=== PATIENT | male | born 1935 | race Caucasian/White ===

== ENCOUNTER 2017-12-09 09:24 | Inpatient (IN) | payer OTHER, MEDICARE ==
[~2017-12-09] VITALS: Ht 172.7 cm; Wt 87.8 kg
[~2017-12-09 09:24] MED LIST: ASCO500 PO; Aspir 8181 MG PO; CLON1 PO; DOCU100 PO; FERR325 PO; FISH1000 PO; FURO40 PO; Fludrocortison0.1 MG PO; HYDACE10B PO; METO25 PO; MULVITMIND PO; NAPR500 PO; PANT40 PO; POTCHL10ER PO; SENN187 PO; SPIR25 PO
[2017-12-09 09:45] LABS: PCO2 Arterial 83.1 mmHg (35-45); PO2 Arterial 143 mmHg (80-100); pH Blood Arterial 7.25 (7.35-7.45)
[2017-12-09] MEDS ORDERED: CLON1 PO (09:55)
[2017-12-09] MEDS ORDERED: FURO20 PO (09:55)
[2017-12-09] MEDS ORDERED: ALBU2.5V5 (09:55)
[2017-12-09] MEDS ORDERED: ASPI81CH PO (09:55)
[2017-12-09] MEDS ORDERED: DULO30 (09:55)
[2017-12-09] MEDS ORDERED: MELA3 (09:56)
[2017-12-09] MEDS ORDERED: METO25 PO (09:56)
[2017-12-09] MEDS ORDERED: POTCHL10ER PO (09:57)
[2017-12-09] MEDS ORDERED: SPIR25 (09:57)
[2017-12-09 10:00] LABS: Calcium, Ionized (POC) 1.05 mmol/L (1.10-1.46); Chloride (POC) 99 mmol/L (98-108); Creatinine (POC) 1.2 mg/dL (0.8-1.3); Glucose (ISTAT POC) 124 mg/dL (70-99); Hemoglobin (POC) 7.8 g/dL (13.5-17.5); Potassium (POC) 4.7 mmol/L (3.5-5.5); Sodium (POC) 143 mmol/L (135-148); Total CO2 (POC) 35 mmol/L (21-32)
[2017-12-09 10:03] LABS: BASOPHILS ABSOLUTE AUTO 0.06 K/mm3 (0.00-0.23); BASOPHILS PERCENT AUTO 0 % (0-2); EOSINOPHILS ABSOLUTE AUTO 0.09 K/mm3 (0.00-0.68); EOSINOPHILS PERCENT AUTO 1 % (0-6); Hematocrit 23.1 % (37.0-53.0); IMMATURE GRAN ABSOLUTE AUTO 0.26 K/mm3 (0.00-0.10); IMMATURE GRAN PERCENT AUTO 2 % (0-1); LYMPHOCYTES PERCENT AUTO 3 % (21-46); MONOCYTES ABSOLUTE AUTO 0.85 K/mm3 (0.16-1.47); MONOCYTES PERCENT AUTO 5 % (4-13); Mean Corpuscular HGB 18.9 pg (26.0-34.0); Mean Corpuscular HGB Conc 24.7 g/dL (31.5-36.5); Mean Corpuscular Volume 77 fL (80-100); Mean Platelet Volume 9.5 fL (9.1-12.4); NEUTROPHILS ABSOLUTE AUTO 14.34 K/mm3 (1.96-9.15); NEUTROPHILS PERCENT AUTO 89 % (41-73); NRBC ABSOLUTE 0.07 K/mm3 (0.00-0.02); NRBC Auto 0.4 /100 WBC (0.0-0.2); Platelet Count 296 K/mm3 (150-400); RDW Coefficient Variation 18.4 % (11.7-14.2); RDW Standard Deviation 50.6 fL (35.1-46.3); Red Blood Cell Count 3.02 M/mm3 (4.30-5.90)
[2017-12-09 10:05] LABS: Alanine Aminotransfer (ALT/SGP 11 U/L (12-78); Albumin, Blood 2.8 g/dL (3.4-5.0); Albumin/Globulin Ratio 0.6 (0.8-1.8); Alk Phos 132 U/L (50-136); Anion Gap 2 mmol/L (6-16); Aspartate Aminotrans (AST/SGOT 11 U/L (12-37); Bilirubin, Total 0.4 mg/dL (0.1-1.0); Blood Urea Nitrogen 19 mg/dL (8-24); Bun/Creatinine Ratio 15.6 (12.0-20.0); CO2, Blood 37 mmol/L (21-32); Calcium, Blood 7.4 mg/dL (8.5-10.1); Chloride, Blood 104 mmol/L (98-108); Creatinine, Blood 1.22 mg/dL (0.60-1.20); Globulin, Blood 4.6 g/dL (2.2-4.0); Glomerular Filtration Rate >60 (60-); Glucose, Blood 122 mg/dL (70-99); Potassium, Blood 4.9 mmol/L (3.5-5.5); Sodium, Blood 143 mmol/L (136-145); Total Protein, Blood 7.4 g/dL (6.4-8.2); Troponin I <0.015 ng/mL (0.000-0.040)
[2017-12-09 10:56] LABS: Hemoglobin 5.7 g/dL (13.5-17.5)
[2017-12-09 12:13] LABS: Source, Urine Catheter
[2017-12-09 12:17] LABS: Bilirubin, Urine Neg (Neg); Blood, Urine Neg (Neg); Glucose Qualitative, Urine Neg (Neg); Ketones, Urine Neg (Neg); Leukocyte Esterase, Urine Neg (Neg); Nitrite, Urine Neg (Neg); Protein, Urine 1+ (Neg); Urobilinogen, Urine NORM (Normal)
[2017-12-09 12:32] LABS: Appearance, Urine Clear (Clear); Color, Urine Yellow (P-Yellow)
[2017-12-09 14:26] LABS: Hematocrit 23.1 % (37.0-53.0); Hemoglobin 5.7 g/dL (13.5-17.5)
[2017-12-09 16:33] LABS: Hematocrit 26.5 % (37.0-53.0)
[2017-12-09] MEDS ORDERED: NAPR220 PO (17:39)
[2017-12-09] MEDS ORDERED: DOCU100 PO (17:41)
[2017-12-09] MEDS ORDERED: ALBU2.5V5 NEB (17:42)
[2017-12-09] MEDS ORDERED: Multivitamin1 EAC1 PO (17:45)
[2017-12-09] MEDS ORDERED: FISH OIL 1,0001 EAC2 PO (17:46)
[2017-12-09 22:06] LABS: Hematocrit 27.7 % (37.0-53.0); Hemoglobin 7.6 g/dL (13.5-17.5)
[2017-12-10 03:57] LABS: BASOPHILS ABSOLUTE AUTO 0.03 K/mm3 (0.00-0.23); BASOPHILS PERCENT AUTO 0 % (0-2); EOSINOPHILS PERCENT AUTO 1 % (0-6); Hematocrit 28.3 % (37.0-53.0); Hemoglobin 7.6 g/dL (13.5-17.5); IMMATURE GRAN ABSOLUTE AUTO 0.15 K/mm3 (0.00-0.10); IMMATURE GRAN PERCENT AUTO 1 % (0-1); LYMPHOCYTES ABSOLUTE AUTO 0.56 K/mm3 (0.84-5.20); LYMPHOCYTES PERCENT AUTO 5 % (21-46); MONOCYTES PERCENT AUTO 5 % (4-13); Mean Corpuscular HGB 21.2 pg (26.0-34.0); Mean Corpuscular HGB Conc 26.9 g/dL (31.5-36.5); Mean Corpuscular Volume 79 fL (80-100); Mean Platelet Volume 9.5 fL (9.1-12.4); NEUTROPHILS ABSOLUTE AUTO 9.87 K/mm3 (1.96-9.15); NEUTROPHILS PERCENT AUTO 87 % (41-73); NRBC ABSOLUTE 0.04 K/mm3 (0.00-0.02); NRBC Auto 0.4 /100 WBC (0.0-0.2); Platelet Count 203 K/mm3 (150-400); RDW Coefficient Variation 19.2 % (11.7-14.2); RDW Standard Deviation 54.9 fL (35.1-46.3); Red Blood Cell Count 3.58 M/mm3 (4.30-5.90); White Blood Cell Count 11.31 K/mm3 (4.00-11.30)
[2017-12-10 04:17] LABS: Alanine Aminotransfer (ALT/SGP 12 U/L (12-78); Albumin, Blood 2.5 g/dL (3.4-5.0); Albumin/Globulin Ratio 0.6 (0.8-1.8); Alk Phos 113 U/L (50-136); Anion Gap 4 mmol/L (6-16); Aspartate Aminotrans (AST/SGOT 11 U/L (12-37); Blood Urea Nitrogen 17 mg/dL (8-24); Bun/Creatinine Ratio 17.8 (12.0-20.0); CO2, Blood 34 mmol/L (21-32); Calcium, Blood 7.1 mg/dL (8.5-10.1); Chloride, Blood 104 mmol/L (98-108); Creatinine, Blood 0.96 mg/dL (0.60-1.20); Globulin, Blood 4.2 g/dL (2.2-4.0); Glomerular Filtration Rate >60 (60-); Glucose, Blood 99 mg/dL (70-99); Phosphorus, Blood 2.3 mg/dL (2.5-4.9); Potassium, Blood 4.2 mmol/L (3.5-5.5); Sodium, Blood 142 mmol/L (136-145); Total Protein, Blood 6.7 g/dL (6.4-8.2); Vancomycin, Random 9.3 ug/mL
[2017-12-10 17:22] LABS: Hematocrit 25.4 % (37.0-53.0)
[2017-12-10 22:16] LABS: Hematocrit 26.5 % (37.0-53.0); Hemoglobin 7.2 g/dL (13.5-17.5)
[2017-12-10 22:32] LABS: Anion Gap 4 mmol/L (6-16); Blood Urea Nitrogen 15 mg/dL (8-24); Bun/Creatinine Ratio 16.4 (12.0-20.0); CO2, Blood 31 mmol/L (21-32); Calcium, Blood 6.5 mg/dL (8.5-10.1); Chloride, Blood 107 mmol/L (98-108); Creatinine, Blood 0.91 mg/dL (0.60-1.20); Glomerular Filtration Rate >60 (60-); Glucose, Blood 125 mg/dL (70-99); Potassium, Blood 3.9 mmol/L (3.5-5.5); Sodium, Blood 142 mmol/L (136-145)
[2017-12-11 03:46] LABS: Hematocrit 25.8 % (37.0-53.0); Mean Corpuscular HGB Conc 27.1 g/dL (31.5-36.5); Mean Corpuscular Volume 81 fL (80-100); Mean Platelet Volume 8.9 fL (9.1-12.4); NRBC ABSOLUTE 0.03 K/mm3 (0.00-0.02); NRBC Auto 0.3 /100 WBC (0.0-0.2); Platelet Count 143 K/mm3 (150-400); RDW Coefficient Variation 20.1 % (11.7-14.2); Red Blood Cell Count 3.18 M/mm3 (4.30-5.90); White Blood Cell Count 8.59 K/mm3 (4.00-11.30)
[2017-12-11 04:08] LABS: Anion Gap 2 mmol/L (6-16); Blood Urea Nitrogen 13 mg/dL (8-24); Bun/Creatinine Ratio 14.2 (12.0-20.0); CO2, Blood 33 mmol/L (21-32); Calcium, Blood 6.5 mg/dL (8.5-10.1); Chloride, Blood 107 mmol/L (98-108); Creatinine, Blood 0.92 mg/dL (0.60-1.20); Glomerular Filtration Rate >60 (60-); Glucose, Blood 105 mg/dL (70-99); Phosphorus, Blood 1.8 mg/dL (2.5-4.9); Potassium, Blood 3.9 mmol/L (3.5-5.5); Sodium, Blood 142 mmol/L (136-145); Vancomycin, Random 10.3 ug/mL
[2017-12-11 04:37] LABS: BAND PERCENT MAN 3 % (0-8); BASOPHILS PERCENT MAN 0 % (0-2); EOSINOPHILS ABSOLUTE MAN 0.17 K/mm3 (0.00-0.68); EOSINOPHILS PERCENT MAN 2 % (0-6); LYMPHOCYTES ABSOLUTE MAN 0.34 K/mm3 (0.84-5.20); LYMPHOCYTES PERCENT MAN 4 % (21-46); MONOCYTES ABSOLUTE MAN 0.25 K/mm3 (0.16-1.47); MONOCYTES PERCENT MAN 3 % (4-13); MYELOCYTE ABSOLUTE MAN 0.17 K/mm3 (0.00-0.00); MYELOCYTE PERCENT MAN 2 % (0-0); NEUTROPHILS ABSOLUTE MAN 7.64 K/mm3 (1.96-9.15); SEG NEUTROPHILS PERCENT MAN 86 % (41-73); TOTAL CELLS COUNTED 100
[2017-12-11 16:33] LABS: Hematocrit 30.3 % (37.0-53.0); Hemoglobin 8.4 g/dL (13.5-17.5)
[2017-12-12 04:15] LABS: Hematocrit 29.7 % (37.0-53.0); Hemoglobin 8.1 g/dL (13.5-17.5); Mean Corpuscular HGB 22.1 pg (26.0-34.0); Mean Corpuscular HGB Conc 27.3 g/dL (31.5-36.5); Mean Corpuscular Volume 81 fL (80-100); NRBC ABSOLUTE 0.03 K/mm3 (0.00-0.02); NRBC Auto 0.4 /100 WBC (0.0-0.2); Platelet Count 138 K/mm3 (150-400); RDW Coefficient Variation 20.4 % (11.7-14.2); RDW Standard Deviation 59.5 fL (35.1-46.3); Red Blood Cell Count 3.66 M/mm3 (4.30-5.90); White Blood Cell Count 7.91 K/mm3 (4.00-11.30)
[2017-12-12 04:35] LABS: Anion Gap 5 mmol/L (6-16); Blood Urea Nitrogen 8 mg/dL (8-24); Bun/Creatinine Ratio 8.6 (12.0-20.0); CO2, Blood 32 mmol/L (21-32); Calcium, Blood 6.4 mg/dL (8.5-10.1); Chloride, Blood 106 mmol/L (98-108); Creatinine, Blood 0.93 mg/dL (0.60-1.20); Glomerular Filtration Rate >60 (60-); Glucose, Blood 107 mg/dL (70-99); Magnesium, Blood 2.3 mg/dL (1.6-2.4); Potassium, Blood 3.7 mmol/L (3.5-5.5); Sodium, Blood 143 mmol/L (136-145)
[2017-12-12 05:16] LABS: BAND PERCENT MAN 2 % (0-8); BASOPHILS ABSOLUTE MAN 0.07 K/mm3 (0.00-0.23); BASOPHILS PERCENT MAN 1 % (0-2); EOSINOPHILS PERCENT MAN 0 % (0-6); LYMPHOCYTES ABSOLUTE MAN 0.55 K/mm3 (0.84-5.20); LYMPHOCYTES PERCENT MAN 7 % (21-46); MONOCYTES ABSOLUTE MAN 0.31 K/mm3 (0.16-1.47); MONOCYTES PERCENT MAN 4 % (4-13); MYELOCYTE ABSOLUTE MAN 0.23 K/mm3 (0.00-0.00); MYELOCYTE PERCENT MAN 3 % (0-0); NEUTROPHILS ABSOLUTE MAN 6.72 K/mm3 (1.96-9.15); SEG NEUTROPHILS PERCENT MAN 83 % (41-73); TOTAL CELLS COUNTED 100
[2017-12-13 05:28] LABS: Albumin, Blood 2.3 g/dL (3.4-5.0); Anion Gap 5 mmol/L (6-16); Blood Urea Nitrogen 6 mg/dL (8-24); Bun/Creatinine Ratio 7.4 (12.0-20.0); CO2, Blood 30 mmol/L (21-32); Calcium, Blood 6.5 mg/dL (8.5-10.1); Chloride, Blood 108 mmol/L (98-108); Creatinine, Blood 0.81 mg/dL (0.60-1.20); Glomerular Filtration Rate >60 (60-); Glucose, Blood 99 mg/dL (70-99); Phosphorus, Blood 2.2 mg/dL (2.5-4.9); Potassium, Blood 4.4 mmol/L (3.5-5.5); Sodium, Blood 143 mmol/L (136-145)
[2017-12-13 11:07] LABS: BASOPHILS ABSOLUTE AUTO 0.07 K/mm3 (0.00-0.23); BASOPHILS PERCENT AUTO 1 % (0-2); EOSINOPHILS ABSOLUTE AUTO 0.06 K/mm3 (0.00-0.68); EOSINOPHILS PERCENT AUTO 1 % (0-6); Hemoglobin 9.2 g/dL (13.5-17.5); IMMATURE GRAN ABSOLUTE AUTO 0.35 K/mm3 (0.00-0.10); IMMATURE GRAN PERCENT AUTO 4 % (0-1); LYMPHOCYTES ABSOLUTE AUTO 0.41 K/mm3 (0.84-5.20); LYMPHOCYTES PERCENT AUTO 5 % (21-46); MONOCYTES ABSOLUTE AUTO 0.49 K/mm3 (0.16-1.47); MONOCYTES PERCENT AUTO 6 % (4-13); Mean Corpuscular HGB Conc 27.1 g/dL (31.5-36.5); Mean Platelet Volume 10.3 fL (9.1-12.4); NEUTROPHILS ABSOLUTE AUTO 7.19 K/mm3 (1.96-9.15); NEUTROPHILS PERCENT AUTO 84 % (41-73); Platelet Count 110 K/mm3 (150-400); RDW Coefficient Variation 22.1 % (11.7-14.2); White Blood Cell Count 8.57 K/mm3 (4.00-11.30)
[2017-12-13 11:08] LABS: Mean Corpuscular Volume 85 fL (80-100)
[2017-12-14 05:50] LABS: BASOPHILS ABSOLUTE AUTO 0.05 K/mm3 (0.00-0.23); BASOPHILS PERCENT AUTO 1 % (0-2); EOSINOPHILS ABSOLUTE AUTO 0.29 K/mm3 (0.00-0.68); EOSINOPHILS PERCENT AUTO 4 % (0-6); Hematocrit 34.3 % (37.0-53.0); Hemoglobin 9.3 g/dL (13.5-17.5); IMMATURE GRAN ABSOLUTE AUTO 0.21 K/mm3 (0.00-0.10); IMMATURE GRAN PERCENT AUTO 3 % (0-1); LYMPHOCYTES ABSOLUTE AUTO 0.58 K/mm3 (0.84-5.20); LYMPHOCYTES PERCENT AUTO 8 % (21-46); MONOCYTES ABSOLUTE AUTO 0.56 K/mm3 (0.16-1.47); MONOCYTES PERCENT AUTO 8 % (4-13); Mean Corpuscular HGB 22.5 pg (26.0-34.0); Mean Corpuscular HGB Conc 27.1 g/dL (31.5-36.5); Mean Corpuscular Volume 83 fL (80-100); Mean Platelet Volume 9.6 fL (9.1-12.4); NEUTROPHILS ABSOLUTE AUTO 5.57 K/mm3 (1.96-9.15); NEUTROPHILS PERCENT AUTO 77 % (41-73); Platelet Count 115 K/mm3 (150-400); RDW Coefficient Variation 22.2 % (11.7-14.2); Red Blood Cell Count 4.14 M/mm3 (4.30-5.90); White Blood Cell Count 7.26 K/mm3 (4.00-11.30)
[2017-12-14 06:03] LABS: Albumin, Blood 2.3 g/dL (3.4-5.0); Anion Gap 3 mmol/L (6-16); Blood Urea Nitrogen 6 mg/dL (8-24); Bun/Creatinine Ratio 6.1 (12.0-20.0); CO2, Blood 36 mmol/L (21-32); Chloride, Blood 105 mmol/L (98-108); Creatinine, Blood 0.99 mg/dL (0.60-1.20); Glomerular Filtration Rate >60 (60-); Glucose, Blood 107 mg/dL (70-99); Phosphorus, Blood 1.5 mg/dL (2.5-4.9); Potassium, Blood 3.9 mmol/L (3.5-5.5); Sodium, Blood 144 mmol/L (136-145)
[2017-12-15 08:20] LABS: BASOPHILS ABSOLUTE AUTO 0.05 K/mm3 (0.00-0.23); BASOPHILS PERCENT AUTO 1 % (0-2); EOSINOPHILS ABSOLUTE AUTO 0.31 K/mm3 (0.00-0.68); EOSINOPHILS PERCENT AUTO 4 % (0-6); Hematocrit 32.6 % (37.0-53.0); Hemoglobin 8.9 g/dL (13.5-17.5); IMMATURE GRAN PERCENT AUTO 1 % (0-1); LYMPHOCYTES ABSOLUTE AUTO 0.84 K/mm3 (0.84-5.20); LYMPHOCYTES PERCENT AUTO 11 % (21-46); MONOCYTES ABSOLUTE AUTO 0.54 K/mm3 (0.16-1.47); MONOCYTES PERCENT AUTO 7 % (4-13); Mean Corpuscular HGB 22.6 pg (26.0-34.0); Mean Corpuscular HGB Conc 27.3 g/dL (31.5-36.5); Mean Corpuscular Volume 83 fL (80-100); Mean Platelet Volume 9.4 fL (9.1-12.4); NEUTROPHILS ABSOLUTE AUTO 5.67 K/mm3 (1.96-9.15); NEUTROPHILS PERCENT AUTO 76 % (41-73); Platelet Count 109 K/mm3 (150-400); RDW Coefficient Variation 22.5 % (11.7-14.2); RDW Standard Deviation 65.8 fL (35.1-46.3); Red Blood Cell Count 3.94 M/mm3 (4.30-5.90); White Blood Cell Count 7.51 K/mm3 (4.00-11.30)
[2017-12-15 08:39] LABS: Vancomycin, Trough 11.9 ug/mL (5.0-10.0)
[2017-12-15 08:42] LABS: Albumin, Blood 2.2 g/dL (3.4-5.0); Anion Gap 3 mmol/L (6-16); Blood Urea Nitrogen 7 mg/dL (8-24); Bun/Creatinine Ratio 7.3 (12.0-20.0); CO2, Blood 40 mmol/L (21-32); Calcium, Blood 7.2 mg/dL (8.5-10.1); Chloride, Blood 102 mmol/L (98-108); Creatinine, Blood 0.95 mg/dL (0.60-1.20); Glomerular Filtration Rate >60 (60-); Glucose, Blood 94 mg/dL (70-99); Potassium, Blood 3.4 mmol/L (3.5-5.5); Sodium, Blood 145 mmol/L (136-145)
[2017-12-15 13:20] LABS: PCO2 Arterial 63.9 mmHg (35-45); PO2 Arterial 59.3 mmHg (80-100); pH Blood Arterial 7.43 (7.35-7.45)
[2017-12-15 16:00] LABS: Source, Urine Catheter
[2017-12-15 16:29] LABS: Bilirubin, Urine Neg (Neg); Blood, Urine Neg (Neg); Glucose Qualitative, Urine Neg (Neg); Ketones, Urine Neg (Neg); Leukocyte Esterase, Urine 1+ (Neg); Nitrite, Urine Neg (Neg); Protein, Urine Neg (Neg); Urobilinogen, Urine NORM (Normal)
[2017-12-15 16:39] LABS: Appearance, Urine Clear (Clear); Color, Urine Yellow (P-Yellow)
[2017-12-15 16:40] LABS: Bacteria Rare /hpf; Red Blood Cells, Urine Not Seen /hpf (0-2); Squamous Epithelial Cells Rare /hpf (Few); White Blood Cells, Urine 0-2 /hpf (0-5)
[2017-12-16 04:24] LABS: Albumin, Blood 2.3 g/dL (3.4-5.0); Anion Gap 3 mmol/L (6-16); Blood Urea Nitrogen 9 mg/dL (8-24); Bun/Creatinine Ratio 8.4 (12.0-20.0); CO2, Blood 42 mmol/L (21-32); Calcium, Blood 7.5 mg/dL (8.5-10.1); Chloride, Blood 95 mmol/L (98-108); Creatinine, Blood 1.07 mg/dL (0.60-1.20); Glomerular Filtration Rate >60 (60-); Glucose, Blood 91 mg/dL (70-99); Magnesium, Blood 1.7 mg/dL (1.6-2.4); Phosphorus, Blood 1.5 mg/dL (2.5-4.9); Potassium, Blood 3.7 mmol/L (3.5-5.5); Sodium, Blood 140 mmol/L (136-145)
[2017-12-16 05:35] LABS: BASOPHILS ABSOLUTE AUTO 0.05 K/mm3 (0.00-0.23); BASOPHILS PERCENT AUTO 1 % (0-2); EOSINOPHILS ABSOLUTE AUTO 0.38 K/mm3 (0.00-0.68); EOSINOPHILS PERCENT AUTO 5 % (0-6); Hematocrit 30.9 % (37.0-53.0); Hemoglobin 8.6 g/dL (13.5-17.5); IMMATURE GRAN ABSOLUTE AUTO 0.06 K/mm3 (0.00-0.10); IMMATURE GRAN PERCENT AUTO 1 % (0-1); LYMPHOCYTES ABSOLUTE AUTO 0.76 K/mm3 (0.84-5.20); LYMPHOCYTES PERCENT AUTO 10 % (21-46); MONOCYTES ABSOLUTE AUTO 0.59 K/mm3 (0.16-1.47); MONOCYTES PERCENT AUTO 8 % (4-13); Mean Corpuscular HGB 22.3 pg (26.0-34.0); Mean Corpuscular HGB Conc 27.8 g/dL (31.5-36.5); Mean Platelet Volume 9.3 fL (9.1-12.4); NEUTROPHILS ABSOLUTE AUTO 5.68 K/mm3 (1.96-9.15); NEUTROPHILS PERCENT AUTO 76 % (41-73); Platelet Count 111 K/mm3 (150-400); RDW Coefficient Variation 22.7 % (11.7-14.2); RDW Standard Deviation 64.3 fL (35.1-46.3); Red Blood Cell Count 3.85 M/mm3 (4.30-5.90); White Blood Cell Count 7.52 K/mm3 (4.00-11.30)
[2017-12-16 05:41] LABS: Mean Corpuscular Volume 80 fL (80-100)
[2017-12-17 04:46] LABS: BASOPHILS ABSOLUTE AUTO 0.07 K/mm3 (0.00-0.23); BASOPHILS PERCENT AUTO 1 % (0-2); EOSINOPHILS ABSOLUTE AUTO 0.51 K/mm3 (0.00-0.68); EOSINOPHILS PERCENT AUTO 6 % (0-6); Hematocrit 32.1 % (37.0-53.0); IMMATURE GRAN ABSOLUTE AUTO 0.06 K/mm3 (0.00-0.10); IMMATURE GRAN PERCENT AUTO 1 % (0-1); LYMPHOCYTES ABSOLUTE AUTO 0.87 K/mm3 (0.84-5.20); LYMPHOCYTES PERCENT AUTO 11 % (21-46); MONOCYTES ABSOLUTE AUTO 0.52 K/mm3 (0.16-1.47); MONOCYTES PERCENT AUTO 6 % (4-13); Mean Corpuscular HGB 22.5 pg (26.0-34.0); Mean Corpuscular Volume 80 fL (80-100); Mean Platelet Volume 9.7 fL (9.1-12.4); NEUTROPHILS ABSOLUTE AUTO 6.21 K/mm3 (1.96-9.15); NEUTROPHILS PERCENT AUTO 75 % (41-73); Platelet Count 120 K/mm3 (150-400); RDW Coefficient Variation 23.2 % (11.7-14.2); RDW Standard Deviation 66.6 fL (35.1-46.3); White Blood Cell Count 8.24 K/mm3 (4.00-11.30)
[2017-12-17 05:05] LABS: Albumin, Blood 2.3 g/dL (3.4-5.0); Anion Gap 5 mmol/L (6-16); Blood Urea Nitrogen 12 mg/dL (8-24); Bun/Creatinine Ratio 11.9 (12.0-20.0); CO2, Blood 37 mmol/L (21-32); Calcium, Blood 7.8 mg/dL (8.5-10.1); Chloride, Blood 98 mmol/L (98-108); Creatinine, Blood 1.01 mg/dL (0.60-1.20); Glomerular Filtration Rate >60 (60-); Glucose, Blood 98 mg/dL (70-99); Magnesium, Blood 1.8 mg/dL (1.6-2.4); Phosphorus, Blood 2.2 mg/dL (2.5-4.9); Potassium, Blood 4.1 mmol/L (3.5-5.5); Sodium, Blood 140 mmol/L (136-145)
[2017-12-18 05:47] LABS: BASOPHILS ABSOLUTE AUTO 0.04 K/mm3 (0.00-0.23); BASOPHILS PERCENT AUTO 1 % (0-2); EOSINOPHILS PERCENT AUTO 5 % (0-6); Hematocrit 32.4 % (37.0-53.0); Hemoglobin 9.3 g/dL (13.5-17.5); IMMATURE GRAN ABSOLUTE AUTO 0.04 K/mm3 (0.00-0.10); IMMATURE GRAN PERCENT AUTO 1 % (0-1); LYMPHOCYTES ABSOLUTE AUTO 0.91 K/mm3 (0.84-5.20); LYMPHOCYTES PERCENT AUTO 12 % (21-46); MONOCYTES ABSOLUTE AUTO 0.52 K/mm3 (0.16-1.47); MONOCYTES PERCENT AUTO 7 % (4-13); Mean Corpuscular HGB 23.1 pg (26.0-34.0); Mean Corpuscular HGB Conc 28.7 g/dL (31.5-36.5); Mean Corpuscular Volume 80 fL (80-100); Mean Platelet Volume 9.9 fL (9.1-12.4); NEUTROPHILS ABSOLUTE AUTO 5.59 K/mm3 (1.96-9.15); NEUTROPHILS PERCENT AUTO 75 % (41-73); Platelet Count 142 K/mm3 (150-400); RDW Coefficient Variation 23.8 % (11.7-14.2); RDW Standard Deviation 67.6 fL (35.1-46.3); Red Blood Cell Count 4.03 M/mm3 (4.30-5.90)
[2017-12-18 05:54] LABS: Anion Gap 6 mmol/L (6-16); Blood Urea Nitrogen 13 mg/dL (8-24); Bun/Creatinine Ratio 12.4 (12.0-20.0); CO2, Blood 36 mmol/L (21-32); Calcium, Blood 8.5 mg/dL (8.5-10.1); Chloride, Blood 99 mmol/L (98-108); Creatinine, Blood 1.05 mg/dL (0.60-1.20); Glomerular Filtration Rate >60 (60-); Glucose, Blood 98 mg/dL (70-99); Potassium, Blood 4.2 mmol/L (3.5-5.5); Sodium, Blood 141 mmol/L (136-145)
[2017-12-18 08:57] LABS: Vancomycin, Trough 12.2 ug/mL (5.0-10.0)
[2017-12-19 04:59] LABS: BASOPHILS ABSOLUTE AUTO 0.06 K/mm3 (0.00-0.23); BASOPHILS PERCENT AUTO 1 % (0-2); EOSINOPHILS ABSOLUTE AUTO 0.53 K/mm3 (0.00-0.68); EOSINOPHILS PERCENT AUTO 8 % (0-6); Hematocrit 31.9 % (37.0-53.0); Hemoglobin 9.1 g/dL (13.5-17.5); IMMATURE GRAN ABSOLUTE AUTO 0.03 K/mm3 (0.00-0.10); IMMATURE GRAN PERCENT AUTO 0 % (0-1); LYMPHOCYTES ABSOLUTE AUTO 0.82 K/mm3 (0.84-5.20); LYMPHOCYTES PERCENT AUTO 12 % (21-46); MONOCYTES ABSOLUTE AUTO 0.51 K/mm3 (0.16-1.47); MONOCYTES PERCENT AUTO 8 % (4-13); Mean Corpuscular HGB 22.8 pg (26.0-34.0); Mean Corpuscular HGB Conc 28.5 g/dL (31.5-36.5); Mean Corpuscular Volume 80 fL (80-100); Mean Platelet Volume 9.3 fL (9.1-12.4); NEUTROPHILS ABSOLUTE AUTO 4.86 K/mm3 (1.96-9.15); NEUTROPHILS PERCENT AUTO 71 % (41-73); Platelet Count 162 K/mm3 (150-400); RDW Coefficient Variation 23.6 % (11.7-14.2); RDW Standard Deviation 67.7 fL (35.1-46.3); Red Blood Cell Count 3.99 M/mm3 (4.30-5.90); White Blood Cell Count 6.81 K/mm3 (4.00-11.30)
[2017-12-19 05:21] LABS: Anion Gap 6 mmol/L (6-16); Blood Urea Nitrogen 14 mg/dL (8-24); Bun/Creatinine Ratio 13.6 (12.0-20.0); CO2, Blood 34 mmol/L (21-32); Calcium, Blood 8.3 mg/dL (8.5-10.1); Chloride, Blood 101 mmol/L (98-108); Creatinine, Blood 1.03 mg/dL (0.60-1.20); Glomerular Filtration Rate >60 (60-); Glucose, Blood 91 mg/dL (70-99); Potassium, Blood 4.3 mmol/L (3.5-5.5); Sodium, Blood 141 mmol/L (136-145)
[2017-12-19 05:32] LABS: Digoxin (Lanoxin) 1.06 ug/mL (0.80-2.00)
[2017-12-20 12:30] LABS: BASOPHILS ABSOLUTE AUTO 0.09 K/mm3 (0.00-0.23); BASOPHILS PERCENT AUTO 1 % (0-2); EOSINOPHILS ABSOLUTE AUTO 0.56 K/mm3 (0.00-0.68); EOSINOPHILS PERCENT AUTO 7 % (0-6); Hematocrit 33.7 % (37.0-53.0); Hemoglobin 9.5 g/dL (13.5-17.5); IMMATURE GRAN ABSOLUTE AUTO 0.04 K/mm3 (0.00-0.10); IMMATURE GRAN PERCENT AUTO 1 % (0-1); LYMPHOCYTES PERCENT AUTO 9 % (21-46); MONOCYTES ABSOLUTE AUTO 0.64 K/mm3 (0.16-1.47); MONOCYTES PERCENT AUTO 8 % (4-13); Mean Corpuscular HGB 22.7 pg (26.0-34.0); Mean Corpuscular HGB Conc 28.2 g/dL (31.5-36.5); Mean Corpuscular Volume 81 fL (80-100); Mean Platelet Volume 10.1 fL (9.1-12.4); NEUTROPHILS ABSOLUTE AUTO 5.99 K/mm3 (1.96-9.15); NEUTROPHILS PERCENT AUTO 75 % (41-73); Platelet Count 220 K/mm3 (150-400); RDW Coefficient Variation 23.7 % (11.7-14.2); RDW Standard Deviation 68.8 fL (35.1-46.3); Red Blood Cell Count 4.18 M/mm3 (4.30-5.90); White Blood Cell Count 8.02 K/mm3 (4.00-11.30)
[2017-12-20 12:55] LABS: Anion Gap 5 mmol/L (6-16); Blood Urea Nitrogen 15 mg/dL (8-24); Bun/Creatinine Ratio 12.8 (12.0-20.0); CO2, Blood 35 mmol/L (21-32); Calcium, Blood 8.6 mg/dL (8.5-10.1); Chloride, Blood 101 mmol/L (98-108); Creatinine, Blood 1.17 mg/dL (0.60-1.20); Glomerular Filtration Rate >60 (60-); Glucose, Blood 96 mg/dL (70-99); Potassium, Blood 4.4 mmol/L (3.5-5.5); Sodium, Blood 141 mmol/L (136-145)
[2017-12-21 08:24] LABS: BASOPHILS ABSOLUTE AUTO 0.06 K/mm3 (0.00-0.23); BASOPHILS PERCENT AUTO 1 % (0-2); EOSINOPHILS ABSOLUTE AUTO 0.39 K/mm3 (0.00-0.68); EOSINOPHILS PERCENT AUTO 7 % (0-6); Hemoglobin 8.7 g/dL (13.5-17.5); IMMATURE GRAN ABSOLUTE AUTO 0.02 K/mm3 (0.00-0.10); IMMATURE GRAN PERCENT AUTO 0 % (0-1); LYMPHOCYTES ABSOLUTE AUTO 0.75 K/mm3 (0.84-5.20); LYMPHOCYTES PERCENT AUTO 13 % (21-46); MONOCYTES ABSOLUTE AUTO 0.47 K/mm3 (0.16-1.47); MONOCYTES PERCENT AUTO 8 % (4-13); Mean Corpuscular HGB 22.8 pg (26.0-34.0); Mean Corpuscular HGB Conc 28.1 g/dL (31.5-36.5); Mean Corpuscular Volume 81 fL (80-100); Mean Platelet Volume 9.7 fL (9.1-12.4); NEUTROPHILS ABSOLUTE AUTO 4.26 K/mm3 (1.96-9.15); NEUTROPHILS PERCENT AUTO 72 % (41-73); Platelet Count 258 K/mm3 (150-400); RDW Coefficient Variation 23.7 % (11.7-14.2); RDW Standard Deviation 69.2 fL (35.1-46.3); Red Blood Cell Count 3.82 M/mm3 (4.30-5.90); White Blood Cell Count 5.95 K/mm3 (4.00-11.30)
[2017-12-21 08:42] LABS: Anion Gap 4 mmol/L (6-16); Blood Urea Nitrogen 20 mg/dL (8-24); Bun/Creatinine Ratio 16.5 (12.0-20.0); CO2, Blood 34 mmol/L (21-32); Calcium, Blood 8.3 mg/dL (8.5-10.1); Chloride, Blood 105 mmol/L (98-108); Creatinine, Blood 1.21 mg/dL (0.60-1.20); Glomerular Filtration Rate >60 (60-); Glucose, Blood 91 mg/dL (70-99); Magnesium, Blood 2.3 mg/dL (1.6-2.4); Phosphorus, Blood 3.1 mg/dL (2.5-4.9); Potassium, Blood 4.4 mmol/L (3.5-5.5); Sodium, Blood 143 mmol/L (136-145)
[2017-12-21 08:46] LABS: Vancomycin, Trough 14.3 ug/mL (5.0-10.0)
[2017-12-22] MEDS ORDERED: ALBU3IS INH (13:19)
[2017-12-22] MEDS ORDERED: DIGOX250 MCG PO (13:20)
[2017-12-22] MEDS ORDERED: BUDE.25 INH (13:21)
[2017-12-22] MEDS ORDERED: BISA10S PR (13:21)
[2017-12-22] MEDS ORDERED: GAVILAX17 GM PO (13:22)
[2017-12-22] MEDS ORDERED: ACET325 PO (13:22)
[2017-12-22] MEDS ORDERED: Augmentin 875-1 EACH PO (13:23)
[2017-12-22] MEDS ORDERED: Ferrous Sulfat325 M2 PO (13:23)
[2017-12-22] MEDS ORDERED: PANT40 PO (13:24)
== END 2017-12-22 14:26 | DRG 871 ==
LOC: ER 09:24 → MEDS 10:06 → ICUW 10:06 → ICUE 10:06 → ICUW 11:20 → MEDS 12-12 13:45 → PCU 12-15 16:36 → MEDS 12-18 21:13 → ENPENDDIS 12-22 11:30 → MEDS 12-22 14:26
PROVIDERS: Emergency Medicine; Internal Medicine; Internal Medicine Critical Care Medicine; Internal Medicine Gastroenterology; Pharmacist
PROC: 30233N1 Transfusion of Nonautologous Red Blood Cells into Peripheral Vein, Percutaneous Approach (ICD-10-PCS; principal; 2017-12-09)
PROC: 0DD68ZX Extraction of Stomach, Via Natural or Artificial Opening Endoscopic, Diagnostic (ICD-10-PCS; 2017-12-21)
PROC: 0W3P8ZZ Control Bleeding in Gastrointestinal Tract, Via Natural or Artificial Opening Endoscopic (ICD-10-PCS; 2017-12-21 16:00)
DX: A41.9 Sepsis, unspecified organism (principal); J15.5 Pneumonia due to Escherichia coli; J96.21 Acute and chronic respiratory failure with hypoxia; R57.1 Hypovolemic shock; J96.22 Acute and chronic respiratory failure with hypercapnia; I69.354 Hemiplegia and hemiparesis following cerebral infarction affecting left non-dominant side; N17.9 Acute kidney failure, unspecified; J44.1 Chronic obstructive pulmonary disease with (acute) exacerbation; R65.20 Severe sepsis without septic shock; Z87.891 Personal history of nicotine dependence; M19.90 Unspecified osteoarthritis, unspecified site; Z74.01 Bed confinement status; I48.0 Paroxysmal atrial fibrillation; Z79.82 Long term (current) use of aspirin; D50.9 Iron deficiency anemia, unspecified; K21.9 Gastro-esophageal reflux disease without esophagitis; E78.5 Hyperlipidemia, unspecified; F03.90 Unspecified dementia, unspecified severity, without behavioral disturbance, psychotic disturbance, mood disturbance, and anxiety; I95.9 Hypotension, unspecified; R00.0 Tachycardia, unspecified; E83.39 Other disorders of phosphorus metabolism; K27.9 Peptic ulcer, site unspecified, unspecified as acute or chronic, without hemorrhage or perforation; G89.4 Chronic pain syndrome; I69.391 Dysphagia following cerebral infarction; R13.10 Dysphagia, unspecified; Z99.81 Dependence on supplemental oxygen; A49.02 Methicillin resistant Staphylococcus aureus infection, unspecified site; K26.9 Duodenal ulcer, unspecified as acute or chronic, without hemorrhage or perforation; K22.70 Barrett's esophagus without dysplasia; I99.8 Other disorder of circulatory system; I11.0 Hypertensive heart disease with heart failure
CPT/HCPCS: 36415; 36430; 36600; 51702; 51703; 71045; 71046; 80047; 80048; 80053; 80069; 80162; 80202; 81001; 82330; 82803; 83605; 83735; 83880; 84100; 84484; 85007; 85014; 85018; 85025; 85027; 86850; 86900; 86901; 86923; 87040; 87070; 87077; 87086; 87147; 87186; 87205; 88305; 88342; 92610; 93005; 93010; 93306; 94640; 94660; 94667; 94760; 94761; 94762; 96365; 97110; 97116; 97162; 97166; 97530; 97535; 99285-25; C9113; G8978; G8979; G8987; G8988; G8996; G8997; G8998; J1940; J2543; J3370; J7030; J7040; J7050; J7060; J7120; P9016

== ENCOUNTER 2020-12-25 12:44 | Emergency (ER) | payer OTHER ==
[~2020-12-25] VITALS: Ht 172.7 cm; Wt 90.7 kg
[~2020-12-25 12:44] MED LIST changes: +ACET325 PO; +ALBU2.5V5; +ALBU2.5V5 NEB; +ALBU3IS INH; +ASPI81CH PO; +Augmentin 875-1 EACH PO; +BISA10S PR; +BUDE.25 INH; +DIGOX250 MCG PO; +DULO30; +FISH OIL 1,0001 EAC2 PO; +FURO20 PO; +Ferrous Sulfat325 M2 PO; +GAVILAX17 GM PO; +MELA3; +Multivitamin1 EAC1 PO; +NAPR220 PO; +SPIR25
[2020-12-25] MEDS ORDERED: Norco 5-325 Ta1 EACH PO (15:01)
== END 2020-12-25 15:35 | disposition home or self-care (01) ==
LOC: ER 12:44
DX: S82.101A Unspecified fracture of upper end of right tibia, initial encounter for closed fracture (principal); S82.401A Unspecified fracture of shaft of right fibula, initial encounter for closed fracture; K21.9 Gastro-esophageal reflux disease without esophagitis; D64.9 Anemia, unspecified; Z79.899 Other long term (current) drug therapy; Z79.82 Long term (current) use of aspirin; Z87.891 Personal history of nicotine dependence; W18.30XA Fall on same level, unspecified, initial encounter; Y92.000 Kitchen of unspecified non-institutional (private) residence as the place of occurrence of the external cause
CPT/HCPCS: 27752; 73090; 73110; 73560-RT; 73590; 96374-59; 96375-59; 99284-25; J2405; J3010

== ENCOUNTER 2021-01-06 16:00 | Emergency (ER) | payer OTHER ==
[~2021-01-06] VITALS: Ht 172.7 cm; Wt 90.7 kg
[~2021-01-06 16:00] MED LIST changes: +Norco 5-325 Ta1 EACH PO
[2021-01-06] MEDS ORDERED: METO50ER PO ×2 (16:26→16:27)
[2021-01-06] MEDS ORDERED: Ranitidine HCl150 M1 PO (16:27)
[2021-01-06] MEDS ORDERED: SPIR25 PO (16:28)
[2021-01-06] MEDS ORDERED: METSALMENC (16:30)
[2021-01-06] MEDS ORDERED: ASCORBIC ACID500 MG PO (16:37)
== END 2021-01-06 19:05 | disposition home or self-care (01) ==
LOC: ER 16:00
DX: S82.421D Displaced transverse fracture of shaft of right fibula, subsequent encounter for closed fracture with routine healing (principal); S82.101D Unspecified fracture of upper end of right tibia, subsequent encounter for closed fracture with routine healing; D64.9 Anemia, unspecified; K21.9 Gastro-esophageal reflux disease without esophagitis; Z79.899 Other long term (current) drug therapy; Z79.82 Long term (current) use of aspirin; Z86.73 Personal history of transient ischemic attack (TIA), and cerebral infarction without residual deficits; Z87.891 Personal history of nicotine dependence
CPT/HCPCS: 29505; 73562-RT; 99283-25

== ENCOUNTER 2023-07-27 19:09 | Inpatient (IN) | payer OTHER ==
[~2023-07-27] VITALS: Ht 172.7 cm; Wt 109.4 kg
[~2023-07-27 19:09] MED LIST changes: +ASCORBIC ACID500 MG PO; +METO50ER PO; +METSALMENC TOP; +Ranitidine HCl150 M1 PO
[2023-07-27 19:32] LABS: Base Excess Venous 5.5 mmol/L; Bicarbonate Venous 27.8 mmol/L (24.0-30.0); PCO2 Venous 57.8 mmHg (38-42); pH Blood Venous 7.34 (7.34-7.37)
[2023-07-27] MEDS ORDERED: Naloxone HCl 1MG / ML 2ML SYR IV ONE (19:35)
[2023-07-27 19:42] LABS: BASOPHILS ABSOLUTE AUTO 0.03 K/mm3 (0.00-0.23); BASOPHILS PERCENT AUTO 0 % (0-2); EOSINOPHILS ABSOLUTE AUTO 0.01 K/mm3 (0.00-0.68); EOSINOPHILS PERCENT AUTO 0 % (0-6); Hematocrit 40.7 % (37.0-53.0); Hemoglobin 12.3 g/dL (13.5-17.5); IMMATURE GRAN ABSOLUTE AUTO 0.14 K/mm3 (0.00-0.10); IMMATURE GRAN PERCENT AUTO 1 % (0-1); LYMPHOCYTES ABSOLUTE AUTO 0.47 K/mm3 (0.84-5.20); LYMPHOCYTES PERCENT AUTO 4 % (21-46); MONOCYTES ABSOLUTE AUTO 0.18 K/mm3 (0.16-1.47); MONOCYTES PERCENT AUTO 1 % (4-13); Mean Corpuscular HGB 30.8 pg (26.0-34.0); Mean Corpuscular HGB Conc 30.2 g/dL (31.5-36.5); Mean Corpuscular Volume 102 fL (80-100); Mean Platelet Volume 9.4 fL (9.1-12.4); NEUTROPHILS ABSOLUTE AUTO 12.68 K/mm3 (1.96-9.15); NEUTROPHILS PERCENT AUTO 94 % (41-73); Platelet Count 239 K/mm3 (150-400); RDW Coefficient Variation 12.7 % (11.7-14.2); RDW Standard Deviation 48.3 fL (35.1-46.3); White Blood Cell Count 13.51 K/mm3 (4.00-11.30)
[2023-07-27 19:43] LABS: Source, Urine Foley catheter
[2023-07-27] MEDS ORDERED: Ipratropium Bromide INH 0.02% 0.5 mg/2.5ML Vial INH SCH (19:45)
[2023-07-27] MEDS ORDERED: Albuterol 2.5 MG/3 ML VIAL INH SCH (19:45)
[2023-07-27 19:52] LABS: Appearance, Urine Clear (Clear); Bilirubin, Urine Neg (Neg); Blood, Urine 2+ (Neg); Color, Urine Yellow (P-Yellow); Glucose Qualitative, Urine Neg (Neg); Ketones, Urine Neg (Neg); Leukocyte Esterase, Urine Neg (Neg); Nitrite, Urine Neg (Neg); Protein, Urine 2+ (Neg); Urobilinogen, Urine NORM (Normal)
[2023-07-27 20:07] LABS: Albumin, Blood 2.8 g/dL (3.4-5.0); Albumin/Globulin Ratio 0.5 (0.8-1.8); Bilirubin, Total 0.3 mg/dL (0.1-1.0); Bun/Creatinine Ratio 15.8 (12.0-20.0); Calcium, Blood 8.5 mg/dL (8.5-10.1); Creatinine, Blood 1.39 mg/dL (0.60-1.20); Globulin, Blood 5.4 g/dL (2.2-4.0); Potassium, Blood 5.6 mmol/L (3.5-5.5); Total Protein, Blood 8.2 g/dL (6.4-8.2)
[2023-07-27 20:21] LABS: U Amphetamine Screen Not Detected; U Barbituate Screen Not Detected; U Benzodiazapine Screen Not Detected; U Buprenorphine Screen Not Detected; U Cannabinoids Screen Not Detected; U Cocaine Screen Not Detected; U Methadone Screen Not Detected; U Methamphetamine Screen Not Detected; U Opiates Screen Not Detected; U Oxycodone Screen Not Detected; U Phencyclidine Screen Not Detected
[2023-07-27 20:37] LABS: Bacteria Few /hpf; Squamous Epithelial Cells Rare /hpf (Few); White Blood Cells, Urine 0-2 /hpf (0-5)
[2023-07-27] MEDS ORDERED: CefTRIAXone Sodium 1,000 MG in NS 100 ML IV ONE (21:15)
[2023-07-27] MEDS ORDERED: Azithromycin 500 MG in NS 250 ML IV ONE (21:15)
[2023-07-27] MEDS ORDERED: NS 1,000 ML IV SCH (21:15)
[2023-07-27 22:37] LABS: Influenza A, PCR NEGATIVE (NEGATIVE); Influenza B, PCR NEGATIVE (NEGATIVE); Resp Syncytial Virus, PCR NEGATIVE (NEGATIVE); SARS-Cov-2 (COVID-19) PCR, MMC NEGATIVE (NEGATIVE)
[2023-07-28] VITALS (7 sets, daily range): BP systolic 97–128; BP diastolic 52–73
[2023-07-28] MEDS ORDERED: Budesonide 0.5 MG/2 ML RESP INH SCH (02:50)
[2023-07-28] MEDS ORDERED: Albuterol 2.5 MG/3 ML VIAL INH PRN (02:50)
[2023-07-28] MEDS ORDERED: Lactated Ringer's 1,000 ML IV SCH (03:00)
[2023-07-28 03:45] LABS: Base Excess Venous 3.7 mmol/L; Bicarbonate Venous 26.3 mmol/L (24.0-30.0); PCO2 Venous 60.7 mmHg (38-42)
[2023-07-28 04:15] LABS: BASOPHILS ABSOLUTE AUTO 0.03 K/mm3 (0.00-0.23); BASOPHILS PERCENT AUTO 0 % (0-2); EOSINOPHILS PERCENT AUTO 0 % (0-6); Hematocrit 37.9 % (37.0-53.0); Hemoglobin 11.4 g/dL (13.5-17.5); IMMATURE GRAN ABSOLUTE AUTO 0.11 K/mm3 (0.00-0.10); IMMATURE GRAN PERCENT AUTO 1 % (0-1); LYMPHOCYTES ABSOLUTE AUTO 0.43 K/mm3 (0.84-5.20); LYMPHOCYTES PERCENT AUTO 4 % (21-46); MONOCYTES ABSOLUTE AUTO 0.29 K/mm3 (0.16-1.47); MONOCYTES PERCENT AUTO 3 % (4-13); Mean Corpuscular HGB 30.5 pg (26.0-34.0); Mean Corpuscular HGB Conc 30.1 g/dL (31.5-36.5); Mean Corpuscular Volume 101 fL (80-100); Mean Platelet Volume 9.7 fL (9.1-12.4); NEUTROPHILS ABSOLUTE AUTO 9.69 K/mm3 (1.96-9.15); NEUTROPHILS PERCENT AUTO 92 % (41-73); Platelet Count 242 K/mm3 (150-400); RDW Coefficient Variation 12.7 % (11.7-14.2); RDW Standard Deviation 47.5 fL (35.1-46.3); Red Blood Cell Count 3.74 M/mm3 (4.30-5.90); White Blood Cell Count 10.55 K/mm3 (4.00-11.30)
[2023-07-28 04:40] LABS: Albumin, Blood 2.6 g/dL (3.4-5.0); Albumin/Globulin Ratio 0.5 (0.8-1.8); Bilirubin, Total 0.3 mg/dL (0.1-1.0); Bun/Creatinine Ratio 16.8 (12.0-20.0); Calcium, Blood 8.3 mg/dL (8.5-10.1); Creatinine, Blood 1.43 mg/dL (0.60-1.20); Globulin, Blood 5.1 g/dL (2.2-4.0); Potassium, Blood 5.3 mmol/L (3.5-5.5); Total Protein, Blood 7.7 g/dL (6.4-8.2)
[2023-07-28] MEDS ORDERED: NS 1,000 ML IV SCH ×2 (04:55→07:00)
--- NOTE | 2023-07-28 06:42 | NUR ---
SHIFT SUMMARY PATIENT ARRIVED TO PCU 05 VIA STRETCHER, SLIDE TRANSFER COMPLETED. PATIENT WAS AWAKE AND ALERT AND ORIENTED X4. WAS ONLY ABLE TO SPEAK A FEW WORDS AT A TIME DUE TO WORK OF BREATHING. PATIENT ON 2 LITERS O2 VIA NASAL CANULA, PATIENT REPORTS FEELING SHORT OF BREATH, AUDIBLE WHEEZE WHEN STANDING NEXT TO HIM. PATIENT DENIES HAVING ANY CHEST PAIN OR PRESSURE, BLOOD PRESSURE STABLE, SINUS RHYTHM ON TELE. PATIENT HAS A HISTORY OF STROKE, RIGHT SIDE OF MOUTH TURNED DOWN, DIFFERENT PUPIL SIZES NOTED, PATIENT REPORTS DOUBLE VISION, ALL SINCE THE STROKE. PATIENT ABLE TO PARTICIPATE IN CARE. WILL CONTINUE TO MONITOR. CALL LIGHT WITHIN REACH.
[2023-07-28] MEDS ORDERED: Enoxaparin 40 MG/0.4 ML SYR SC SCH (09:00)
[2023-07-28] MEDS ORDERED: Lactobacil 2-S.Thermo-Bifido 1 1 Cap PO SCH (09:00)
[2023-07-28] MEDS ORDERED: MethylPREDNISolone Sod Succ 40 MG VIAL IV SCH (12:00)
[2023-07-28 16:14] LABS: Acinetobacter baumannii DNA Not Detected copy/mL (NOT DETECT); Enterobacter cloacae DNA Not Detected copy/mL (NOT DETECT)
[2023-07-28 16:15] LABS: Escherichia coli DNA Detected Bin 10^5 copy/mL (NOT DETECT); Haemophilus influenzae DNA Detected Bin 10^5 copy/mL (NOT DETECT); Klebsiella aerogenes DNA Not Detected copy/mL (NOT DETECT); Klebsiella oxytoca DNA Not Detected copy/mL (NOT DETECT); Klebsiella pneumoniae DNA Not Detected copy/mL (NOT DETECT); Moraxella catarrhalis DNA Detected Bin 10^6 copy/mL (NOT DETECT); Proteus sp DNA Not Detected copy/mL (NOT DETECT); Pseudomonas aeruginosa DNA Not Detected copy/mL (NOT DETECT); Serratia marcescens DNA Not Detected copy/mL (NOT DETECT); Staphylococcus aureus DNA Not Detected copy/mL (NOT DETECT)
[2023-07-28 16:16] LABS: Adenovirus DNA Not Detected (NOT DETECT); CTX-M Resistance Gene Not Detected; Chlamydia pneumonia Not Detected (NOT DETECT); Human Coronavirus RNA Not Detected (NOT DETECT); Human Metapneumovirus RNA Not Detected (NOT DETECT); IMP Resistance Gene Not Detected; Influenza virus A RNA Not Detected (NOT DETECT); Influenza virus B RNA Not Detected (NOT DETECT); KPC Resistance Gene Not Detected; Legionella pneumophila Not Detected (NOT DETECT); Mycoplasma pneumoniae Not Detected (NOT DETECT); NDM Resistance Gene Not Detected; OXA-48-like Resistance Gene Not Detected; Parainfluenza virus RNA Not Detected (NOT DETECT); Respiratory syncytial Vir RNA Not Detected (NOT DETECT); Rhinovirus+Enterovirus RNA Not Detected (NOT DETECT); Streptococcus agalactiae DNA Detected Bin 10^5 copy/mL (NOT DETECT); Streptococcus pneumoniae DNA Not Detected copy/mL (NOT DETECT); Streptococcus pyogenes DNA Not Detected copy/mL (NOT DETECT); VIM Resistance Gene Not Detected; mecA/C and MREJ Resist Gene Not Detected
--- NOTE | 2023-07-28 16:41 | NUR ---
SHIFT SUMMARY PT A/O X4 ALL SHIFT. NO CURRENT CHANGE OF MENTAL STATUS. PT ABLE TO USE CALL LIGHT APPROPRIATLEY AND EXPRESS HIS NEEDS. WHEN AWAKE PT IS ON 2L O2 VIA NC, WHEN ALSEEP SATS DROP TO MID 80'S. BIPAP PLACED WHEN ASLEEP SETTINGS AT 16/8 AT 30%. PT APPEARS SOB WHEN HAVING CONVERSATION AND EATING, STATES "BREATHING IS FINE." BP HAVE REMAINED STABLE. ON TELE, HR IN SR IN LOW 70'S. AT BEGINNING OF SHIFT PT HAD CONDOM CATH PLACED, DURING SHIFT CTAH WAS LEAKING, REPLACED WITH ANOTHER ONE AND WAS STILL LEAKING, REMOVED CONDOM CATH AND PLACED URINAL NEXT TO PT PER HIS REQUEST, EVEN THOUGH HE STATED EARLIER IN THE SHIFT INCONTINENT. PT HAD SPEECH EVALUATION COMPLETED AND WAS PUT ON MINCED AND MOIST, AND CAN TAKE PILLS WHOLE, TOLERATES WELL. HEAD CT AND ECHO WERE ALSO COMPLETED TODAY. HOSPITAL SCIENTIST SAW PT, PT UPATED ABOUT TX PLAN.
[2023-07-28] MEDS ORDERED: Sodium Bicarb 8.4% Inj 50 MEQ in Sodium Chloride 0.45% 1,000 ML IV SCH (17:00)
--- NOTE | 2023-07-28 17:07 | NUR ---
THIS RN OVERSAW AND REVIEWED STUDENT RN'S CHARTING AND ASSESSMENTS.
--- NOTE | 2023-07-28 17:09 | NUR ---
THIS RN CONTACTED MD ABOUT 1/2 NS WITH BICARB NEW ORDER PLACED WITH A CURRENT ORDER OF NS AT 125MLS/HR. MD INSTRUCTED THIS RN TO FINISH NS 125 BAG AND DC IT AFTER BAG IS FINISHED.
--- NOTE | 2023-07-28 17:32 | NUR ---
UPDATE WHEN DINNER TRAYS CAME PT TOOK OFF BIPAP MACHINE AND SATS QUICKLY DECLINED TO MID 80'S. 2L NC WAS APPLIED BY MACHINE II COREMAKER. TITRATED TO 3 LITERS AND SATS SLOWLY CAME UP TO LOW 90'S. LOWERED BACK DOWN TO 2L AND IS NOW EATING.
[2023-07-28] MEDS ORDERED: CefTRIAXone Sodium 1,000 MG in NS 100 ML IV SCH (18:00)
[2023-07-28] MEDS ORDERED: Guaifenesin/Dextromethorphan Syrup 5 ML UDC PO SCH (21:00)
[2023-07-28] MEDS ORDERED: ClonazePAM 0.5 MG Tab PO SCH (21:00)
[2023-07-28 21:31] LABS: PCO2 Venous 56.7 mmHg (38-42); pH Blood Venous 7.35 (7.34-7.37)
[2023-07-28 21:32] LABS: Base Excess Venous 5.7 mmol/L; Bicarbonate Venous 28.6 mmol/L (24.0-30.0)
[2023-07-28] MEDS ORDERED: Albuterol 2.5 MG/3 ML VIAL INH STA (21:42)
[2023-07-28] MEDS ORDERED: Ipratropium/Albuterol SulF 2.5-0.5MG/3 ML Amp INH SCH (22:00)
[2023-07-28] MEDS ORDERED: CefTRIAXone Sodium 2,000 MG in NS 100 ML IV SCH (22:00)
[2023-07-28] MEDS ORDERED: Azithromycin 500 MG in NS 250 ML IV SCH (23:00)
[2023-07-28] MEDS ORDERED: NS 250 ML IV PRN (23:05)
[2023-07-29] MEDS ORDERED: MethylPREDNISolone Sod Succ 125 MG Vial IV SCH
--- NOTE | 2023-07-29 00:16 | NUR ---
UPDATE PT REFUSING BIPAP, DESPITE THIS RN PROVIDED EDUCATION ABOUT PURPOSE AND IMPORTANCE OF BIPAP.
[2023-07-29 03:25] VITALS: BP 115/55
[2023-07-29 05:39] LABS: BASOPHILS ABSOLUTE AUTO 0.01 K/mm3 (0.00-0.23); BASOPHILS PERCENT AUTO 0 % (0-2); EOSINOPHILS PERCENT AUTO 0 % (0-6); Hematocrit 32.9 % (37.0-53.0); Hemoglobin 10.1 g/dL (13.5-17.5); IMMATURE GRAN ABSOLUTE AUTO 0.07 K/mm3 (0.00-0.10); IMMATURE GRAN PERCENT AUTO 1 % (0-1); LYMPHOCYTES ABSOLUTE AUTO 0.24 K/mm3 (0.84-5.20); LYMPHOCYTES PERCENT AUTO 3 % (21-46); MONOCYTES PERCENT AUTO 1 % (4-13); Mean Corpuscular HGB 30.3 pg (26.0-34.0); Mean Corpuscular HGB Conc 30.7 g/dL (31.5-36.5); Mean Corpuscular Volume 99 fL (80-100); Mean Platelet Volume 9.5 fL (9.1-12.4); NEUTROPHILS ABSOLUTE AUTO 7.86 K/mm3 (1.96-9.15); NEUTROPHILS PERCENT AUTO 95 % (41-73); Platelet Count 227 K/mm3 (150-400); RDW Coefficient Variation 12.8 % (11.7-14.2); RDW Standard Deviation 46.3 fL (35.1-46.3); Red Blood Cell Count 3.33 M/mm3 (4.30-5.90); White Blood Cell Count 8.28 K/mm3 (4.00-11.30)
--- NOTE | 2023-07-29 05:48 | NUR ---
SHIFT SUMMARY SEE PREVIOUS NOTE. PT A&Ox4, CALLS AND COMMUNICATES NEEDS APPROPRIATELY. PT AGREED TO DO BREATHING TREATMENTS BUT CONTINUED TO REFUSE BIPAP THROUGHOUT NIGHT. SpO2> 92% 2-3 L VIA NC, DENIES SOB. PT USED SUCTION IND TO MANAGED SECRETIONS. BP STABLE, SR-ST 90-110's, DENIES CP/PRESSURE. Q2 TURNS PROVIDED. PT ABLE TO USE URINAL IND IN BED. NO C/O OF PAIN THROUGHOUT SHIFT. NO OTHER EVENTS, WILL REPORT TO ONCOMING RN.
[2023-07-29 06:01] LABS: Albumin, Blood 2.4 g/dL (3.4-5.0); Albumin/Globulin Ratio 0.5 (0.8-1.8); Bilirubin, Total 0.2 mg/dL (0.1-1.0); Bun/Creatinine Ratio 20.1 (12.0-20.0); Creatinine, Blood 1.39 mg/dL (0.60-1.20); Globulin, Blood 4.7 g/dL (2.2-4.0); Potassium, Blood 4.8 mmol/L (3.5-5.5); Total Protein, Blood 7.1 g/dL (6.4-8.2)
[2023-07-29 06:04] LABS: BASOPHILS PERCENT MAN 0 % (0-2); EOSINOPHILS PERCENT MAN 0 % (0-6); MONOCYTES PERCENT MAN 0 % (4-13); NEUTROPHILS ABSOLUTE MAN 8.28 K/mm3 (1.96-9.15); SEG NEUTROPHILS PERCENT MAN 100 % (41-73); TOTAL CELLS COUNTED 100
[2023-07-29 07:27] VITALS: BP 135/66
[2023-07-29 11:59] VITALS: BP 130/64
--- NOTE | 2023-07-29 13:44 | NUR ---
Spiritual Care Attempt. Though Pts. chart identifies as a Judaism. Pt. and family graciously decline spiritual care. Family verbalized gratitude for the attempt.
[2023-07-29] MEDS ORDERED: Polyethylene Glycol 3350 17 gm PO PRN (15:00)
[2023-07-29] MEDS ORDERED: Acetaminophen 325 MG TABLET PO PRN (15:00)
[2023-07-29] MEDS ORDERED: Bisacodyl 10 MG Supp PR PRN (15:05)
--- NOTE | 2023-07-29 15:09 | NUR ---
PT'S AND DAUGHTER ARRIVED FOR VISITATION AT ROUGHLY 1300. PT'S ASKED FOR PALLIATIVE NURSE FOR POLST DISCUSSION. PALLIATIVE RN TO PT'S ROOM. PT'S POLST FILLED OUT WITH PALLIATIVE RN AND PT, PT'S , AND DAUGHTER. MD NOTIFIED OF POLST BEING FILLED OUT AND NEEDING MD SIGNITURE.
--- NOTE | 2023-07-29 16:04 | NUR ---
Palliative care meeting with pt and his re: Code Status. The patient is alert, oriented, able to make his own decisions. He was clear he did not wish to be resucitated if his heart were to stop. He would, however be okay with being intubated in the case of respiratory distress or failure. New POLST filled out, pt now LIMITED CODE. POLST signed by patient's per his request and physician. Copy sent to medical records and POLST registry.
[2023-07-29 16:40] VITALS: BP 111/72
[2023-07-29] MEDS ORDERED: Ferrous Sulfate 325 MG Tab PO SCH (17:00)
--- NOTE | 2023-07-29 18:02 | NUR ---
SHIFT SUMMARY PT IS A/O X4. NO ACUTE MENTAL CHANGES DURING SHIFT. PT REFUSED BIPAP DURING SHIFT. PT IS CURRENTLY ON 2L NC AND IS SATING LOW 90'S. RESPIRATORY CAME AND PLACED SHAKER VEST ON PT. PT GETS SOB UPON AMBULATION FROM BED TO CHAIR. STANDBY WALKER AND GAITBELT USED DURING AMBULATION WITH 2 STANDBY ASSIST. HR SINUS TACH IN THE 110'S. BP AND OTHER VITAL SIGNS STABLE. NO COMPLAINT OF N/V/D AND IS ABLE TO TOLERATE DIET. PITTING EDEMA STILL PRESENT IN BILATERAL LEGS AND FEET. PALLIATIVE CARE CAME AND DISCUSSED POLST WITH PT, POLST HAS BEEN UPDATED AND SIGNED BY DOCTOR AND IS IN PT'S CHART. SPEECH EVAL CAME TO SEE PT AND HE TOLERATED WELL. PT'S FAMILY CAME TO SEE HIM AND UPDATED ON CARE.
--- NOTE | 2023-07-29 18:37 | NUR ---
HTIS RN REVIEWED AND AGREES WITH STUDENT RN'S NOTES AND ASSESSMENTS.
[2023-07-29 20:42] VITALS: BP 132/65
[2023-07-29] MEDS ORDERED: Metoprolol Tartrate 25 MG Tab PO SCH (21:00)
[2023-07-29] MEDS ORDERED: Metoprolol Succinate 50 MG TABCR PO SCH (21:00)
[2023-07-29] MEDS ORDERED: Docusate Sodium 100 MG Cap PO SCH (21:00)
[2023-07-29 23:02] VITALS: BP 131/93
[2023-07-30 03:28] VITALS: BP 137/76
[2023-07-30 03:46] LABS: BASOPHILS ABSOLUTE AUTO 0.01 K/mm3 (0.00-0.23); BASOPHILS PERCENT AUTO 0 % (0-2); EOSINOPHILS PERCENT AUTO 0 % (0-6); Hematocrit 34.3 % (37.0-53.0); Hemoglobin 10.5 g/dL (13.5-17.5); IMMATURE GRAN ABSOLUTE AUTO 0.11 K/mm3 (0.00-0.10); IMMATURE GRAN PERCENT AUTO 1 % (0-1); LYMPHOCYTES ABSOLUTE AUTO 0.31 K/mm3 (0.84-5.20); LYMPHOCYTES PERCENT AUTO 4 % (21-46); MONOCYTES ABSOLUTE AUTO 0.17 K/mm3 (0.16-1.47); MONOCYTES PERCENT AUTO 2 % (4-13); Mean Corpuscular HGB 30.3 pg (26.0-34.0); Mean Corpuscular HGB Conc 30.6 g/dL (31.5-36.5); Mean Corpuscular Volume 99 fL (80-100); Mean Platelet Volume 9.7 fL (9.1-12.4); NEUTROPHILS ABSOLUTE AUTO 7.64 K/mm3 (1.96-9.15); NEUTROPHILS PERCENT AUTO 93 % (41-73); Platelet Count 239 K/mm3 (150-400); RDW Coefficient Variation 13.1 % (11.7-14.2); RDW Standard Deviation 47.1 fL (35.1-46.3); Red Blood Cell Count 3.46 M/mm3 (4.30-5.90); White Blood Cell Count 8.24 K/mm3 (4.00-11.30)
[2023-07-30 04:05] LABS: Bun/Creatinine Ratio 18.2 (12.0-20.0); Calcium, Blood 8.1 mg/dL (8.5-10.1); Creatinine, Blood 1.32 mg/dL (0.60-1.20); Potassium, Blood 4.9 mmol/L (3.5-5.5)
--- NOTE | 2023-07-30 06:08 | NUR ---
SHIFT SUMMARY PT A&Ox4, CALLS AND COMMUNICATES NEEDS APPROPRIATELY. SpO2> 92% 1.5-2 L VIA NC, DENIES SOB. PT USED SUCTION IND TO MANAGED SECRETIONS. BP STABLE, SR-ST 90-110's, DENIES CP/PRESSURE. Q2 TURNS PROVIDED. PT ABLE TO USE URINAL IND IN BED. NO C/O OF PAIN THROUGHOUT SHIFT. NO OTHER EVENTS, WILL REPORT TO ONCOMING RN.
[2023-07-30 08:04] VITALS: BP 141/76
[2023-07-30] MEDS ORDERED: Multivitamins 1 Tab PO SCH (09:00)
[2023-07-30] MEDS ORDERED: Spironolactone 25 MG Tab PO SCH (09:00)
[2023-07-30] MEDS ORDERED: Ascorbic Acid 500 MG Tab PO SCH (09:00)
[2023-07-30] MEDS ORDERED: Omega-3 Acid Ethyl Esters 1,000 MG CAP PO SCH (09:00)
--- NOTE | 2023-07-30 10:11 | NUR ---
AM NOTE this rn assumed care at 0700. vital signs stable. tele sinustach 100s-120s patient is alert and oriented x4. perrla. patient reports no chest pain/pressure. patient reports shortness of breath with exertion. pateint had audible wheezes. spo2 >90% on 1.5l nc. baseline 2l nc. denies pain. 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 patient uses wheelchair at baseline, and walker occasionally at home. md nash and stephanie in to see patient this am. discussed plan of care. plan to continue current treatment of steriods and breathing treatments.
[2023-07-30 12:03] VITALS: BP 127/69
[2023-07-30] MEDS ORDERED: Acetylcysteine 200 MG/ML 4ML Vial INH SCH ×3 (12:30→19:00)
[2023-07-30 15:56] VITALS: BP 130/86
--- NOTE | 2023-07-30 17:57 | NUR ---
shift summary patient neuro remains unchaged. vital signs stable. patient denies chest pain/pressure or pain. becomes short of breath with exertion. no acute changes. see previous notes
[2023-07-30 19:39] VITALS: BP 131/84
[2023-07-30 23:37] VITALS: BP 132/92
[2023-07-31 04:29] LABS: BASOPHILS ABSOLUTE AUTO 0.02 K/mm3 (0.00-0.23); BASOPHILS PERCENT AUTO 0 % (0-2); EOSINOPHILS PERCENT AUTO 0 % (0-6); Hematocrit 37.3 % (37.0-53.0); Hemoglobin 11.5 g/dL (13.5-17.5); IMMATURE GRAN ABSOLUTE AUTO 0.11 K/mm3 (0.00-0.10); IMMATURE GRAN PERCENT AUTO 2 % (0-1); LYMPHOCYTES ABSOLUTE AUTO 0.29 K/mm3 (0.84-5.20); LYMPHOCYTES PERCENT AUTO 4 % (21-46); MONOCYTES ABSOLUTE AUTO 0.19 K/mm3 (0.16-1.47); MONOCYTES PERCENT AUTO 3 % (4-13); Mean Corpuscular HGB 30.4 pg (26.0-34.0); Mean Corpuscular HGB Conc 30.8 g/dL (31.5-36.5); Mean Corpuscular Volume 99 fL (80-100); Mean Platelet Volume 9.4 fL (9.1-12.4); NEUTROPHILS ABSOLUTE AUTO 6.15 K/mm3 (1.96-9.15); NEUTROPHILS PERCENT AUTO 91 % (41-73); Platelet Count 265 K/mm3 (150-400); RDW Standard Deviation 46.4 fL (35.1-46.3); Red Blood Cell Count 3.78 M/mm3 (4.30-5.90); White Blood Cell Count 6.76 K/mm3 (4.00-11.30)
[2023-07-31 04:53] LABS: Albumin, Blood 2.7 g/dL (3.4-5.0); Albumin/Globulin Ratio 0.6 (0.8-1.8); Bilirubin, Total 0.3 mg/dL (0.1-1.0); Bun/Creatinine Ratio 18.9 (12.0-20.0); Calcium, Blood 8.3 mg/dL (8.5-10.1); Creatinine, Blood 1.32 mg/dL (0.60-1.20); Globulin, Blood 4.7 g/dL (2.2-4.0); Potassium, Blood 5.1 mmol/L (3.5-5.5); Total Protein, Blood 7.4 g/dL (6.4-8.2)
[2023-07-31 05:27] VITALS: BP 120/75
--- NOTE | 2023-07-31 05:49 | NUR ---
SHIFT SUMMARY PATIENT ALERT AND ORIENTED x4. [place]. ABLE TO MAKE NEEDS KNOWN TO STAFF. BP STABLE. TELE READING SR-ST DURING THE NIGHT. PATIENT ON BASELINE 2-3L NC WITH SPO2 LOW 90s. USING SUCITON AT BEDSIDE FOR EXCESS SECRETIONS. USING URINAL INDEPENDENTLY, ADEQUATE OUTPUT. NO OTHER CHANGES DURING THE NIGHT. WILL REPORT TO DAY SHIFT RN.
[2023-07-31 08:01] VITALS: BP 124/74
[2023-07-31] MEDS ORDERED: Ipratropium/Albuterol SulF 2.5-0.5MG/3 ML Amp INH SCH (08:10)
--- NOTE | 2023-07-31 12:13 | NUR ---
CARE NOTE THIS RN ENCOURAGED PT TO GET UP INTO CHAIR FOR LUNCH AND HE DECLINED TO DO SO. THIS RN EDUCATED PT ON IMPORTANCE OF ACTIVITY AND WILL CONTINUE TO ENCOURAGE MOBILITY/ACTIVITY. CALL LIGHT IS W/IN REACH.
--- NOTE | 2023-07-31 13:17 | NUR ---
CARE NOTE THIS RN SPOKE W/ PT'S CAREGIVER MILTON AND PROVIDED UPDATE W/ PT'S APPROVAL AT APPROX. 1315.
[2023-07-31] MEDS ORDERED: Furosemide 10 MG / ML 2ML Vial IV SCH (14:00)
[2023-07-31 15:09] VITALS: BP 119/78
--- NOTE | 2023-07-31 17:08 | NUR ---
Received pt from PCU 5 at 1500 awake and alert x4. Denies pain. VSS. Resp even nonlabored on 2L NC baseline. Oriented to room and call light. Urinal at bedside. Dinner tray provided. Pain and safety maintained. Will continue to monitor.
--- NOTE | 2023-07-31 17:08 | NUR ---
SHIFT SUMMARY/TRANSFER NOTE PT WAS ALERT AND ORIENTED X 4, HE WAS ABLE TO MAKE HIS NEEDS KNOWN AND CALLED APPROPRIATELY. HE DECLINED GETTING UP TO CHAIR T/O SHIFT DESPITE MUCH ENCOURAGEMENT. BP AND HR STABLE. SPO2 WAS MAINTAINED >95% VIA 2L NC, HE DESATURATED W/ MINIMAL EXERTION BUT RECOVERED QUICKLY. HE DENIED FEELINGS OF CHEST PAIN/PRESSURE, LIGHTHEADEDNESS/DIZZINESS. HE REPORTED RESPIRATORY STATUS WAS BACK TO BASELINE. HE USED BEDSIDE URINAL TO VOID T/O SHIFT. HE DENIED FEELINGS OF NAUSEA/VOMITTING. REPORT GIVEN BY THIS RN TO JEM SCHOFIELD ON MEDICAL FLOOR, PT TRANSFERRED TO MED FLOOR AT APPROX. 1700 AND WAS SENT W/ ALL OF PERSONAL BELONGINGS.
[2023-07-31 19:27] VITALS: BP 134/85
[2023-08-01 03:55] VITALS: BP 111/61
[2023-08-01 05:04] LABS: BASOPHILS ABSOLUTE AUTO 0.01 K/mm3 (0.00-0.23); BASOPHILS PERCENT AUTO 0 % (0-2); EOSINOPHILS PERCENT AUTO 0 % (0-6); Hematocrit 36.2 % (37.0-53.0); Hemoglobin 11.3 g/dL (13.5-17.5); IMMATURE GRAN ABSOLUTE AUTO 0.18 K/mm3 (0.00-0.10); IMMATURE GRAN PERCENT AUTO 3 % (0-1); LYMPHOCYTES ABSOLUTE AUTO 0.31 K/mm3 (0.84-5.20); LYMPHOCYTES PERCENT AUTO 4 % (21-46); MONOCYTES ABSOLUTE AUTO 0.18 K/mm3 (0.16-1.47); MONOCYTES PERCENT AUTO 3 % (4-13); Mean Corpuscular HGB 30.3 pg (26.0-34.0); Mean Corpuscular HGB Conc 31.2 g/dL (31.5-36.5); Mean Corpuscular Volume 97 fL (80-100); Mean Platelet Volume 9.4 fL (9.1-12.4); NEUTROPHILS ABSOLUTE AUTO 6.54 K/mm3 (1.96-9.15); NEUTROPHILS PERCENT AUTO 91 % (41-73); Platelet Count 234 K/mm3 (150-400); RDW Coefficient Variation 12.9 % (11.7-14.2); Red Blood Cell Count 3.73 M/mm3 (4.30-5.90); White Blood Cell Count 7.22 K/mm3 (4.00-11.30)
[2023-08-01 05:46] LABS: Bun/Creatinine Ratio 24.1 (12.0-20.0); Calcium, Blood 8.1 mg/dL (8.5-10.1); Creatinine, Blood 1.37 mg/dL (0.60-1.20); Potassium, Blood 5.1 mmol/L (3.5-5.5)
[2023-08-01 07:28] VITALS: BP 169/105
[2023-08-01] MEDS ORDERED: ACETADOTE200 MG/1 M INH (12:27)
[2023-08-01] MEDS ORDERED: FURO20 PO (12:27)
[2023-08-01] MEDS ORDERED: PRED20 PO (12:28)
[2023-08-01] MEDS ORDERED: TIOT18 INH (12:30)
--- NOTE | 2023-08-01 17:07 | NUR ---
DISCHARGE: PT D/C @1645 VIA WHEELCHAIR WITH . PT WHEELED OUT WITH 2L 02 VIA NC. MEDICATIONS FAXED TO [facility]. PT AWARE TO MAKE FOLLOW-UP APPOINTENT WITH [facility]. IV REMPOVED BY OXYACETYLENE TORCH OPERATOR W/O COMPLICATIONS. TELE SENT BACK. NO QUESTIONS TIME OF D/C.
== END 2023-08-01 16:47 | disposition home or self-care (01) | DRG 871 ==
LOC: ER 19:09 → PCU 07-28 00:44 → MEDS 07-28 00:44 → PCU 07-28 01:55 → MEDS 07-31 16:53
PROVIDERS: Family Medicine; Internal Medicine; Student in an Organized Health Care Education/Training Program; ADMIT Internal Medicine
PROC: 3E03329 Introduction of Other Anti-infective into Peripheral Vein, Percutaneous Approach (ICD-10-PCS; principal; 2023-07-28)
PROC: 5A09357 Assistance with Respiratory Ventilation, Less than 24 Consecutive Hours, Continuous Positive Airway Pressure (ICD-10-PCS; 2023-07-28)
DX: A41.9 Sepsis, unspecified organism (principal); G92.8 Other toxic encephalopathy; J18.9 Pneumonia, unspecified organism; J96.21 Acute and chronic respiratory failure with hypoxia; J96.22 Acute and chronic respiratory failure with hypercapnia; J44.1 Chronic obstructive pulmonary disease with (acute) exacerbation; J44.0 Chronic obstructive pulmonary disease with (acute) lower respiratory infection; I69.351 Hemiplegia and hemiparesis following cerebral infarction affecting right dominant side; I48.92 Unspecified atrial flutter; N17.9 Acute kidney failure, unspecified; R65.20 Severe sepsis without septic shock; R79.1 Abnormal coagulation profile; G89.29 Other chronic pain; B96.20 Unspecified Escherichia coli [E. coli] as the cause of diseases classified elsewhere; J70.5 Respiratory conditions due to smoke inhalation; D64.9 Anemia, unspecified; K21.9 Gastro-esophageal reflux disease without esophagitis; Z79.899 Other long term (current) drug therapy; Z79.82 Long term (current) use of aspirin; Z79.51 Long term (current) use of inhaled steroids; Z79.01 Long term (current) use of anticoagulants; Z79.2 Long term (current) use of antibiotics; Z79.891 Long term (current) use of opiate analgesic; Z98.890 Other specified postprocedural states; Z98.42 Cataract extraction status, left eye; Z98.41 Cataract extraction status, right eye; Z87.891 Personal history of nicotine dependence
CPT/HCPCS: 0241U; 36415; 51702; 70450; 71045; 71260; 80048; 80053; 81001; 82375; 82803; 83605; 83880; 84132; 84145; 84484; 85025; 85379; 87040; 87070; 87077; 87186; 87205; 87633; 92526; 92610; 93005; 93010; 93306; 94640; 94644; 94660; 94664; 94667; 94668; 94762; 96365-59; 96366; 96366-59; 96367-59; 96375-59; 97110; 97116; 97161; 97166; 97530; 99285-25; A9270; J0456; J0696; J1650; J1940; J2310; J2920; J2930; J7030; J7050; J7120; Q9967

== ENCOUNTER 2025-01-30 08:53 | Inpatient (IN) | payer OTHER ==
[~2025-01-30] VITALS: Ht 172.7 cm; Wt 88.7 kg
[~2025-01-30 08:53] MED LIST changes: +ACETADOTE200 MG/1 M INH; +FERSU300 PO; -Ferrous Sulfat325 M2 PO; +PRED20 PO; +TIOT18 INH
[2025-01-30 09:24] LABS: BASOPHILS ABSOLUTE AUTO 0.06 K/mm3 (0.00-0.23); BASOPHILS PERCENT AUTO 0 % (0-2); EOSINOPHILS ABSOLUTE AUTO 0.09 K/mm3 (0.00-0.68); EOSINOPHILS PERCENT AUTO 1 % (0-6); Hematocrit 39.1 % (37.0-53.0); Hemoglobin 12.8 g/dL (13.5-17.5); IMMATURE GRAN ABSOLUTE AUTO 0.25 K/mm3 (0.00-0.10); IMMATURE GRAN PERCENT AUTO 2 % (0-1); LYMPHOCYTES ABSOLUTE AUTO 0.77 K/mm3 (0.84-5.20); LYMPHOCYTES PERCENT AUTO 5 % (21-46); MONOCYTES ABSOLUTE AUTO 0.79 K/mm3 (0.16-1.47); MONOCYTES PERCENT AUTO 6 % (4-13); Mean Corpuscular HGB Conc 32.7 g/dL (31.5-36.5); Mean Corpuscular Volume 92 fL (80-100); NEUTROPHILS ABSOLUTE AUTO 12.21 K/mm3 (1.96-9.15); NEUTROPHILS PERCENT AUTO 86 % (41-73); NRBC ABSOLUTE 0.00 K/mm3 (0.00-0.02); NRBC Auto 0.0 /100 WBC (0.0-0.2); Platelet Count 359 K/mm3 (150-400); RDW Coefficient Variation 14.0 % (11.7-14.2); RDW Standard Deviation 47.5 fL (35.1-46.3)
[2025-01-30] MEDS ORDERED: NS 1,000 ML IV SCH (09:30)
[2025-01-30] MEDS ORDERED: HYDROmorphone HCl/Pf 1MG SYR IV ONE (09:40)
[2025-01-30] MEDS ORDERED: Ondansetron HCl 2 MG / ML 2ML Vial IV ONE (09:40)
[2025-01-30 09:51] LABS: Alanine Aminotransfer (ALT/SGP 20.0 U/L (12-78); Albumin, Blood 2.2 g/dL (3.4-5.0); Albumin/Globulin Ratio 0.3 (0.8-1.8); Anion Gap 8.0 mmol/L (3-11); Aspartate Aminotrans (AST/SGOT 42.0 U/L (12-37); Bilirubin, Total 0.6 mg/dL (0.1-1.0); Blood Urea Nitrogen 41.0 mg/dL (8-24); CO2, Blood 32.0 mmol/L (21-32); Calcium, Blood 8.8 mg/dL (8.5-10.1); Chloride, Blood 99.0 mmol/L (98-108); Creatinine, Blood 1.71 mg/dL (0.60-1.20); Globulin, Blood 6.4 g/dL (2.2-4.0); Glucose, Blood 142.0 mg/dL (70-99); Potassium, Blood 4.4 mmol/L (3.5-5.5); Sodium, Blood 135.0 mmol/L (136-145); Total Protein, Blood 8.6 g/dL (6.4-8.2)
[2025-01-30] MEDS ORDERED: CefTRIAXone Sodium 1,000 MG in NS 100 ML IV ONE (10:50)
[2025-01-30] MEDS ORDERED: Vancomycin (Pharmacy Consult) IV PRN (10:50)
[2025-01-30] MEDS ORDERED: Vancomycin (Pharmacy Consult) IV SCH (11:35)
[2025-01-30] MEDS ORDERED: FLU VACC TS2025(65UP)/MF59C/PF 45 MCG/0.5 ML SYRINGE IM SCH (11:40)
[2025-01-30] MEDS ORDERED: Doxycycline Hyclate 100 MG in Dextrose 5% 250 ML IV ONE (11:45)
[2025-01-30 14:55] VITALS: BP 98/57
[2025-01-30] MEDS ORDERED: Ipratropium/Albuterol SulF 2.5-0.5MG/3 ML Amp INH SCH (15:35)
[2025-01-30] MEDS ORDERED: Ipratropium/Albuterol SulF 2.5-0.5MG/3 ML Amp ONE (15:36)
[2025-01-30 15:42] LABS: pH Blood Venous 7.34 (7.34-7.37)
[2025-01-30] MEDS ORDERED: STIOLTO RESPIMAT4 G1 INH (16:22)
--- NOTE | 2025-01-30 18:28 | NUR ---
SHIFT SUMMARY: ON ARRIVAL FROM ED: PT VERY DROWSY BUT AROUSABLE TO VERBAL STIMULI, RESPONDS TO VERBAL REMINDERS TO TAKE DEEP BREATHS, GRANDDAUGHTER REPORTS VERY SENSITIVE TO PAIN MEDICATION. AT END OF SHIFT: A/O X4, PLEASANT AND COOPERATIVE WITH CARE, ABLE TO COMMUNICATE NEEDS, PT STATES INTEREST IN BECOMING DNR, PALLIATIVE CARE ORDER PLACED, SON ISIDRA AND GRANDDAUGHTER AMERICA AT BEDSIDE. PT HAD A GROUND LEVEL FALL LAST WEEK, RIGHT LEG HAS BEEN RED, SWOLLEN AND HOT SINCE, PAIN INCREASED OVER PAST WEEK, GRANDDAUGHTER BROUGHT TO ED. DX W/CELLULITIS OF RIGHT LEG, EDGES MARKED WITH SKIN MARKER, PHOTOS IN CHART. GROIN AND BUTTOCK EXCORIATED BUT BLANCHABLE, PHOTOS IN CHART. NSR, DENIES CHEST PAIN OR PRESSURE. SPO2 >92% ON 3L O2, ETCO2 MONITORING, BILAT CRACKLES, DENIES SOB, SPEAKS IN COMPLETE SENTENCES. NPO AT THIS TIME, USES URINAL AT BEDSIDE. CALL LIGHT WITHIN REACH, PT EXPRESSES NO FURTHER NEEDS AT THIS TIME.
[2025-01-30 20:22] VITALS: BP 107/71
[2025-01-31 00:48] VITALS: BP 101/58
[2025-01-31 03:43] VITALS: BP 101/55
[2025-01-31] MEDS ORDERED: FentaNYL Citrate 50 MCG/ML 2 ML Injection IV PRN (04:05)
[2025-01-31 05:15] LABS: Hematocrit 29.7 % (37.0-53.0); Hemoglobin 9.7 g/dL (13.5-17.5); Mean Corpuscular HGB Conc 32.7 g/dL (31.5-36.5); Mean Corpuscular Volume 94 fL (80-100); NRBC ABSOLUTE 0.00 K/mm3 (0.00-0.02); NRBC Auto 0.0 /100 WBC (0.0-0.2); Platelet Count 275 K/mm3 (150-400); RDW Coefficient Variation 14.0 % (11.7-14.2); RDW Standard Deviation 48.4 fL (35.1-46.3)
[2025-01-31 05:43] LABS: Albumin, Blood 1.7 g/dL (3.4-5.0); Anion Gap 8 mmol/L (3-11); Blood Urea Nitrogen 35 mg/dL (8-24); CO2, Blood 28 mmol/L (21-32); Calcium, Blood 7.6 mg/dL (8.5-10.1); Chloride, Blood 107 mmol/L (98-108); Creatinine, Blood 1.49 mg/dL (0.60-1.20); Glucose, Blood 105 mg/dL (70-99); Magnesium, Blood 2.1 mg/dL (1.6-2.4); Phosphorus, Blood 2.9 mg/dL (2.5-4.9); Potassium, Blood 3.8 mmol/L (3.5-5.5); Sodium, Blood 139 mmol/L (136-145); Vancomycin, Random 19.7 ug/mL
[2025-01-31] MEDS ORDERED: Doxycycline Hyclate 100 MG in Dextrose 5% 250 ML IV SCH (06:00)
--- NOTE | 2025-01-31 06:08 | NUR ---
SHIFT SUMMARY A/O X3, UNSURE OF DATE, KNOWS YEAR. ANSWERS APPROP, FOLLOWS COMMANDS, ABLE TO MAKE NEEDS KNOWN. GRAND-DAUGHTER AT BS T/O NIGHT ASSISTING WITH NEEDS, USING URINAL TO VOID, REPOSITIONING Q2H AND PRN. RESTLESS AT TIMES. C/O SIGNIF PAIN IN RIGHT LEG (EDEMATOUS, CELLULITIS). TYLENOL GIVEN X2, THEN IN NEED OF STRONGER MED. DR SON UPDATED AND ORDERS RECEIVED. FENTANYL GIVEN FOR PAIN WITH MUCH BETTER RESULT. CLONAZEPAM ALSO RESTARTED (TAKES AT HOME FOR SPASMS). VSS T/O NIGHT W/NC AT 3-4 L, O2 SAT >92%. WILL UPDATE DAY RN WITH ALL OUTSTANDING ISSUES AND PROBLEMS TO DATE.
[2025-01-31] MEDS ORDERED: ALBU90OI INH (07:08)
[2025-01-31] MEDS ORDERED: CLON.5 PO (07:09)
[2025-01-31] MEDS ORDERED: SENN187 PO (07:09)
[2025-01-31 07:46] VITALS: BP 107/49
[2025-01-31] MEDS ORDERED: Polyethylene Glycol 3350 17 gm PO PRN (07:55)
[2025-01-31] MEDS ORDERED: Cholecalciferol 1000 Unit Tablet (=25MCG) PO SCH (09:00)
[2025-01-31] MEDS ORDERED: Lactobacil 2-S.Thermo-Bifido 1 1 Cap PO SCH (09:00)
[2025-01-31] MEDS ORDERED: Enoxaparin 30 MG/0.3 ML SYR SC SCH (09:00)
[2025-01-31] MEDS ORDERED: Enoxaparin 40 MG/0.4 ML SYR SC SCH (09:00)
--- NOTE | 2025-01-31 10:50 | NUR ---
AM NOTE this rn assumed care at 0700. vital signs stable. spo2 >90% on 4l nc. tele sinus rhythm. patient is alert and oriented x4. perrla. patient has right side deficits from previous stroke. patient denies pain, chest pain/pressure or shortness of breath. patient lung sounds coarse upper lobes and lower lobes coarse crackles with expiratory wheeze. patient right leg has cellulitis and it has been marked and no new growth. patient bottom and groin has excoriaton. pictures in chart for leg and bottom. see shift assessment for further detials. md kumar in the room at 0845 and discussed plan for iv abx and switched patient to medical status without tele. family was in room for this conversation.
[2025-01-31 15:55] VITALS: BP 95/49
[2025-01-31 15:58] VITALS: BP 102/56
--- NOTE | 2025-01-31 17:22 | NUR ---
shift summary patient blood pressure soft this afternoon. spo2 >90% on 2l nc. patient family assist with care. no acute changes. plan remains up to date
--- NOTE | 2025-01-31 19:00 | NUR ---
SHIFT TOA- TOA RECEIVED FROM DAY RN APPROXIMATEL @ 1900.PATIENT IS AWAKE AND ALERT,TOA COMPLETED AT BEDSIDE.PATIENT VSS,ABLE TO COMMUNICATE,GCS-15.HEAD OF BED 45 DEGREE,BED AT LOWEST POSITION,ORAL SUCTION @ BEDSIDE AND CALL MOORE WITHIN REACH,USE OF CALL MOORE ACKNOWLEDGED BY PATIENT @ BEDSIDE.
[2025-01-31] MEDS ORDERED: Docusate Sodium/Senna 1 Tab PO SCH (21:00)
[2025-01-31 21:51] VITALS: BP 98/57
[2025-02-01 01:05] VITALS: BP 104/57
--- NOTE | 2025-02-01 06:41 | NUR ---
SHIFT [facility]- PATIENT IS ALERT AND ORIENTED x4,GCS-15,VSS,ON 2L NC O2SAT ABOVE 92%,MAP ABOVE 65.PATIENT FAMILY @ BEDSIDE.PATIENT BED AT LOWEST POSITION,CALL MOORE WITHIN REACH.
[2025-02-01 07:33] VITALS: BP 125/84
--- NOTE | 2025-02-01 10:07 | NUR ---
am note this rn assumed care at 0700. vital signs stable. spo2 >90% on 2l nc. patient is alert and oriented x4. neuro is intact. perrla. patient denies pain at this time, chest pain/pressure or shortness of breath. patient lung sounds coarse upper lobes and coarse crackles expiratory wheeze in bilateral lower lobes. patient has excoriation on bottom and groin. patient has cellulitis of right lower leg. see photos in chart for further detials. see shift assessment for further detials. hack in to see patient and discussed okay with patient transitioning to oral antibiotics and possibly going home if family agrees to plan.
[2025-02-01 11:50] LABS: Creatinine, Blood 1.51 mg/dL (0.60-1.20); Vancomycin, Trough 23.0 ug/mL (5.0-10.0)
[2025-02-01 16:29] VITALS: BP 108/52
--- NOTE | 2025-02-01 16:48 | NUR ---
shift summary patient neuro remains intact. vital signs remain stable. plan for patient to possibly discharge tomorrow pending if blood cultures are negative. family is aware of this.
[2025-02-01 20:30] VITALS: BP 107/62
[2025-02-01 23:46] VITALS: BP 97/54
[2025-02-02 03:45] VITALS: BP 96/52
[2025-02-02 04:28] LABS: Hematocrit 31.7 % (37.0-53.0); Hemoglobin 10.2 g/dL (13.5-17.5); Mean Corpuscular HGB Conc 32.2 g/dL (31.5-36.5); Mean Corpuscular Volume 96 fL (80-100); NRBC ABSOLUTE 0.00 K/mm3 (0.00-0.02); NRBC Auto 0.0 /100 WBC (0.0-0.2); Platelet Count 338 K/mm3 (150-400); RDW Coefficient Variation 14.1 % (11.7-14.2); RDW Standard Deviation 49.5 fL (35.1-46.3)
--- NOTE | 2025-02-02 04:41 | NUR ---
ASSUMED CARE OF PT AT 1900. PT AXOX4 AND ABLE TO USE CALL LIGHT APPROPRIATELY. FAMILY AT BEDSIDE. PT STARTED ON 4LNC AT THE START OF THE SHIFT, MAINTAINING SAT >92%. AROUND 0100, PT BECAME TACHYPNEIC AND WAS NOTED TO BE AUDIBLY WHEEZING. RESPIRATORY THERAPIST AT BEDSIDE; BREATHING TREATMENT ADMINISTERED AND PT TRANSITIONED TO AIRVO FOR INCREASED FLOW. 02 BEING TITRATED DOWN TOLERATED. BLOOD PRESSURES HAVE BEEN ON THE SOFTER SIDE WHILE RESTING, BUT MAP MAINTAINED > 65. PT ABLE TO USE URINAL INDEPENDENTLY. REPORTS PAIN IN RIGHT LEG; PRN PAIN MEDICATION ADMINISTERED REQUESTED. BED IN LOWEST POSITION AND CALL LIGHT WITHIN REACH.
[2025-02-02 04:49] LABS: Albumin, Blood 1.7 g/dL (3.4-5.0); Anion Gap 8 mmol/L (3-11); Blood Urea Nitrogen 23 mg/dL (8-24); CO2, Blood 29 mmol/L (21-32); Calcium, Blood 7.9 mg/dL (8.5-10.1); Chloride, Blood 106 mmol/L (98-108); Creatinine, Blood 1.52 mg/dL (0.60-1.20); Glucose, Blood 96 mg/dL (70-99); Magnesium, Blood 2.2 mg/dL (1.6-2.4); Phosphorus, Blood 2.6 mg/dL (2.5-4.9); Potassium, Blood 3.6 mmol/L (3.5-5.5); Sodium, Blood 139 mmol/L (136-145)
[2025-02-02 07:49] VITALS: BP 99/64
--- NOTE | 2025-02-02 09:00 | NUR ---
AM NOTE: PATIENT ALERT AND ORIENTED. SMILEY AND JOKING WITH STAFF. OVERALL IN GOOD SPIRITS. CAMILA CROSS AT BEDSIDE. PATIENT DENIES PAIN. BEDREST WITH Q2 TURNS. HISTORY OF CVA WITH RIGHT SIDE IMPAIRMENTS. RIGHT HAND CONTRACTED AND RIGHT LOWER EXTRMITY FLACCID WITH INTERNAL ROTATION AND DROP FOOT. PERRLA, DENIES NUMBNESS/TINGLING. MEDICAL STATUS NO TELE. SBP 90'S. DENIES CHEST PAIN/PRESSURE/PALPIATIONS. IV ABX INFUSING PER EMAR. BLE 4+EDEMA. DOPPLER TO ASSESS PEDAL PULSES. HR 90'S. ON AIRVO AT 41L AND 40% FIO2. PLAN TO TRY AND TITRATE BACK TO NASAL CANNULA TODAY. LUNG SOUNDS CLEAR WITH DIMINISHED BASES. OCCASIONAL WHEEZE. BREATHING TREATMENTS PER RESPITATORY CARE. EVEN AND UNLABORED RESPIRTATIONS AT REST. RR 20-22 THIS AM. BOWEL TONES PRESENT. DENIES ABDOMINAL PAIN/NAUSEA. TOLERATING PO DIET. ATTENDS IN PLACE. USING URINAL TO VOID. EXCORIATED GROIN/BUTTOCK. SEE CHART PHOTOS. RIGHT LOWER EXTREMITY RED AND SWOLLEN, SEE CHART PHOTOS. SCATTERED BRUISING. DR. YUN TO BEDSIDE THIS AM, THIS RN PRESENT FOR MD ROUNDING, NO NEW ORDERS FOR THIS RN TO PLACE. BED BATH COMPLETED. CALL LIGHT IN REACH. PATIENT DENIES NEEDS AT THIS TIME.
[2025-02-02 11:14] VITALS: BP 106/73
[2025-02-02 15:00] VITALS: BP 109/64
--- NOTE | 2025-02-02 15:53 | NUR ---
TRANSFER: NO ACUTE CHANGES, SEE PREVIOUS NOTE. PATIENT ALERT AND ORIENTED X4. VITALS STABLE. DENIES PAIN. IV SALINE LOCKED. ON 6L HIGH FLOW NASAL CANNULA. MEDICAL STATUS NO TELE. SON AT BEDSIDE ON TRANSFER. CALL PLACED TO THE [facility] TO UPDATE. REPORTED OFF TO [facility] ON MEDICAL FLOOR.
[2025-02-02] MEDS ORDERED: CeFAZolin Sodium 1,000 MG in NS 50 ML IV SCH (16:00)
--- NOTE | 2025-02-02 16:42 | NUR ---
PATIENT ADMITTED TO MEDICAL FLOOR, TRANSFER FROM PCU. REPORT RECEIVED FROM ANTON. REDNESS TO RIGHT LEG, PICTURES IN CHART AND SKIN MARKED, REDNESS INSIDE MARKED EDGES. PATIENT A/O, SON IN ROOM. BED IN LOW POSITION, CALL LIGHT IN REACH.
[2025-02-02 19:31] VITALS: BP 110/63
[2025-02-02] MEDS ORDERED: NS 250 ML IV PRN (23:55)
[2025-02-03 05:43] VITALS: BP 107/59
--- NOTE | 2025-02-03 06:00 | NUR ---
SHIFT SUMMARY PATIENT A/O X4- PLEASANT AND COOPERATIVE WITH CARE. UTILIZING CALL LIGHT. PATIENT FAMILY MEMBERS STAYED THE NIGHT WITH HIM. REPOSITIONED WHEN PATIENT ALLOWED. BEDREST THOUGHOUT SHIFT. VOIDING CLEAR YELLOW URINE. NO REPORT OF N/V. CURRENTLY ON 5L VIA NC, GETTING BREATHING TREATMENTS FROM RESPIRATORY THERAPY. VITAL SIGNS STABLE. NO ACUTE CHANGES. BED IN LOWEST POSITION, CALL LIGHT IN REACH. WILL REPORT TO DAY SHIFT RN.
[2025-02-03 06:24] LABS: pH Blood Venous 7.38 (7.34-7.37)
[2025-02-03 06:34] LABS: BASOPHILS ABSOLUTE AUTO 0.03 K/mm3 (0.00-0.23); BASOPHILS PERCENT AUTO 0 % (0-2); EOSINOPHILS ABSOLUTE AUTO 0.35 K/mm3 (0.00-0.68); EOSINOPHILS PERCENT AUTO 5 % (0-6); Hematocrit 32.3 % (37.0-53.0); Hemoglobin 10.4 g/dL (13.5-17.5); IMMATURE GRAN ABSOLUTE AUTO 0.11 K/mm3 (0.00-0.10); IMMATURE GRAN PERCENT AUTO 2 % (0-1); LYMPHOCYTES ABSOLUTE AUTO 0.61 K/mm3 (0.84-5.20); LYMPHOCYTES PERCENT AUTO 8 % (21-46); MONOCYTES ABSOLUTE AUTO 0.48 K/mm3 (0.16-1.47); MONOCYTES PERCENT AUTO 7 % (4-13); Mean Corpuscular HGB Conc 32.2 g/dL (31.5-36.5); Mean Corpuscular Volume 96 fL (80-100); NEUTROPHILS ABSOLUTE AUTO 5.73 K/mm3 (1.96-9.15); NEUTROPHILS PERCENT AUTO 78 % (41-73); NRBC ABSOLUTE 0.00 K/mm3 (0.00-0.02); NRBC Auto 0.0 /100 WBC (0.0-0.2); Platelet Count 343 K/mm3 (150-400); RDW Coefficient Variation 14.0 % (11.7-14.2); RDW Standard Deviation 49.8 fL (35.1-46.3)
[2025-02-03 07:00] LABS: Anion Gap 6.0 mmol/L (3-11); Blood Urea Nitrogen 17.0 mg/dL (8-24); CO2, Blood 30.0 mmol/L (21-32); Calcium, Blood 7.9 mg/dL (8.5-10.1); Chloride, Blood 108.0 mmol/L (98-108); Creatinine, Blood 1.33 mg/dL (0.60-1.20); Glucose, Blood 103.0 mg/dL (70-99); Potassium, Blood 3.7 mmol/L (3.5-5.5); Sodium, Blood 140.0 mmol/L (136-145); Thyroid Stimulating Hormone 3.29 uIU/mL (0.360-4.800)
[2025-02-03 07:38] VITALS: BP 116/66
[2025-02-03 15:26] VITALS: BP 115/69
--- NOTE | 2025-02-03 17:18 | NUR ---
SHIFT SUMMARY PATIENT PARTICIPATED WITH PHYSICAL THERAPY THIS SHIFT, ONLY ABLE TO STAND A FEW SECONDS AT BEDSIDE WITH WALKER AND 2 ASSIST WITH GAIT BELT, STATED HE DOESN'T NEED THERAPY AND CAN GO HOME IS. GRANDDAUGHTER IN ROOM MOST OF SHIFT, VERBALIZING THAT PATIENT WILL HAVE FAMILY HELP AND [facility] CAREG[facility] COMING IN FOR SUPPORT. TITRATED TO 2.5 LITERS NC WHICH IS BASELINE. A/O X4 IN GOOD SPIRITS. ABLE TO MAKE NEEDS KNOWN. REDNESS TO RIGHT LOWER LEG RECEEDING WITHIN THE MARKED BORDERS. CALL LIGHT IN REACH
[2025-02-03 19:31] VITALS: BP 118/56
--- NOTE | 2025-02-04 05:04 | NUR ---
SHIFT SUMMARY: AT BEGINNING OF SHIFT, PATIENT WAS ON 2.5L O2 NC, SATTING 93%, AWAKE, ORIENTED AND WATCHING TV. AT AROUND 2348 PATIENT O2 DESAT TO LOW 80'S WHILE SLEEPING, PLACED ON 4L O2 SATTING 91-94%. PATIENT DENIES CP/PRESSURE, SOB, N/V AND DIZZINESS. PATIENT MEDICATED X1 c TYLENOL FOR R LEG PAIN c GOOD EFFECT. PATIENT SLEPT ON/OFF, REPOSITION T/O SHIFT. VITAL SIGNS REVIEWED. PATIENT A/OX3-4, PLEASANT, COOPERATIVE c CARE, CALLS APPROPRIATELY AND MAKE NEEDS KNOWN. BED IN LOWEST POSITION, ALARM ON FOR SAFETY. CALL LIGHT IN REACH. PATIENT FAMILY STAYED OVERNIGHT.
[2025-02-04 05:18] VITALS: BP 112/63
[2025-02-04 07:27] VITALS: BP 114/66
[2025-02-04 14:59] VITALS: BP 104/56
--- NOTE | 2025-02-04 16:35 | NUR ---
SHIFT SUMMARY PT IS A/OX3-4, FORGETFUL. BEDREST AT THIS TIME. R SIDED WEAKNESS R/T HX OF CVA, RLE INTERNAL ROTATION-FOOT DROP WITH BOOT IN PLACE. NO ACUTE CHANGES THROUGHOUT THIS SHIFT. CONTINUING IV ANTIBIOTICS. ON 2.5-4L NC THROUGHOUT THIS SHIFT, PT REPORTS 2.5L AT BASELINE. FAMILY AT BEDSIDE. PT IS PLEASANT AND COOPERATIVE WITH CARE.
[2025-02-04 19:52] VITALS: BP 105/55
[2025-02-05 05:20] VITALS: BP 112/67
--- NOTE | 2025-02-05 06:30 | NUR ---
SHIFT SUMMARY PATIENT IS ALERT AND ORIENTED X3. PATIENT HAS HAD NO ACUTE EVENTS THIS SHIFT. VITAL SIGNS REVIEWED. PATIENT HAS NO COMPLAINTS OF SOB, NAUSEA, VOMITTING OR PAIN THIS SHIFT. BED IN LOCKED AND LOWEST POSITION.
[2025-02-05 07:21] VITALS: BP 124/65
[2025-02-05] MEDS ORDERED: DOCUZEN 8.6-501 EACH PO (13:20)
[2025-02-05 15:35] VITALS: BP 99/53
--- NOTE | 2025-02-05 17:00 | NUR ---
PT DISCHARGED TO HOME. DISCHARGE INSTRUCTIONS PROVIDED AND EDUCATED ON AT TIME OF DISCHARGE. ALL VALUABLES RETURNED AND SENT HOME WITH THE PT.
== END 2025-02-05 17:19 | disposition home health service (06) | DRG 871 ==
LOC: ER 08:53 → PCU 11:33 → EDBEDREQ 13:24 → PCU 14:51 → MEDS 02-02 15:43
PROVIDERS: Internal Medicine; Physician Assistant; Student in an Organized Health Care Education/Training Program; ADMIT Internal Medicine
DX: A41.9 Sepsis, unspecified organism (principal); G92.8 Other toxic encephalopathy; L03.115 Cellulitis of right lower limb; J44.1 Chronic obstructive pulmonary disease with (acute) exacerbation; N17.9 Acute kidney failure, unspecified; J96.11 Chronic respiratory failure with hypoxia; J96.12 Chronic respiratory failure with hypercapnia; C34.90 Malignant neoplasm of unspecified part of unspecified bronchus or lung; I69.351 Hemiplegia and hemiparesis following cerebral infarction affecting right dominant side; G89.29 Other chronic pain; N18.30 Chronic kidney disease, stage 3 unspecified; T40.605A Adverse effect of unspecified narcotics, initial encounter; I48.91 Unspecified atrial fibrillation; I50.9 Heart failure, unspecified; K21.9 Gastro-esophageal reflux disease without esophagitis; D63.1 Anemia in chronic kidney disease; Z98.890 Other specified postprocedural states; Z86.14 Personal history of Methicillin resistant Staphylococcus aureus infection; Z99.81 Dependence on supplemental oxygen; Z87.891 Personal history of nicotine dependence; Z98.41 Cataract extraction status, right eye; Z98.42 Cataract extraction status, left eye; Z79.899 Other long term (current) drug therapy; Z79.51 Long term (current) use of inhaled steroids; Z79.52 Long term (current) use of systemic steroids; Z87.01 Personal history of pneumonia (recurrent); Z23 Encounter for immunization
CPT/HCPCS: 36415; 71045; 73590; 80048; 80053; 80069; 80202; 82565; 82803; 82947; 83605; 83735; 83880; 84145; 84443; 84484; 85025; 85027; 87040; 93005; 93010; 93971; 94640; 94664; 94760; 94762; 96374; 96375; 97162; 97530; 99285-25; A9270; J0690; J0696; J1171; J1650; J2405; J3010; J3373; J7030; J7040; J7050; J7060; J7120